=== PATIENT | female | born 1935 | race Caucasian/White ===

== ENCOUNTER 2016-07-23 11:06 | Emergency (ER) | payer MEDICARE, MEDICAID ==
[~2016-07-23] VITALS: Wt 82.0 kg
[~2016-07-23 11:06] MED LIST: ACET500C5 PO; ALEN70TA30 PO; APIX5TAB PO; BACL10TA PO; CEPH-443 PO; DICL100G37 TOP; DOCU-144 PO; FURO40SO PO; HYDR-3498 PO; IBUP400T22 PO; LEVO75TA5 PO; LYR75 PO; MECL-77 PO; MOR2I IV; NAPH30DR3 BOTH EYES; NITR0.4T6 SL; OLME40TA14 PO; OMEP20CA16 PO; PRED10TA PO; TRAM-40 PO; TRAM50TA2 PO; [UNRECOGNIZED DRUG - CODE] PO
[2016-07-23] MEDS ORDERED: SOD CHLORIDE 0.9% 1,000 ML IV STA (11:47)
[2016-07-23] MEDS ORDERED: morphine 4 MG/ML VIAL IV STA (11:47)
[2016-07-23] MEDS ORDERED: DICLOFENAC SODIUM 37.5 MG/ML VIAL IV STA (11:47)
[2016-07-23] MEDS ORDERED: ONDANSETRON 4 MG INJ IV STA (11:47)
--- NOTE | 2016-07-23 11:57 | ERD ---
ER Documentation Chief Complaint Date/Time DATE: 07/23/16 TIME: 11:49 Chief Complaint LEFT LEG PAIN HX OF DVT HPI This is a 81-year-old Lao-speaking female has a remote history of a deep vein thrombosis in the left lower extremity that has been recannulized. The patient also has an well-healed ulcer on her left heel that had been treated on an outpatient wound clinic. She had been seen July 08, 2016 roughly 2 weeks ago for similar pain that she is presenting with today. She states she has a known history of sciatica and underwent an MRI of her lumbar spine June 26, 2016. The patient indicates that she developed left buttocks pain that began to radiate down the lateral aspect of her left leg. This pain has been persistent for the past 24 hours. She states this is similar nature to previous exacerbations of sciatica. She denies any numbness or tingling of her bilateral lower extremities. She denies any swelling of her bilateral calves nor does she have any muscular cramps of her lower extremities or pain localized to the left calf. She has had no fevers no shaking or chills. She states there is been no discoloration of her bilateral lower extremities. She denies any chest pain or pressure that radiates to the neck or back or jaw and she denies any abdominal pain. She denies any recent trauma to her lumbar spine. ROS All systems reviewed and are negative except as per history of present illness. Medications Home Meds Active Scripts Tramadol HCl (Tramadol HCl) 50 Mg Tablet, 50 MG PO Q4 Y for PAIN, #15 TAB Prov:COREY HERRING MD 06/12/16 Cephalexin* (Keflex*) 500 Mg Capsule, 500 MG PO QID for 10 Days, CAP Prov:KONG NUÑEZ PA-C 06/08/16 Ibuprofen* (Motrin*) 400 Mg Tab, 400 MG PO Q6H Y for PAIN AND OR ELEVATED TEMP, #30 TAB Prov:KONG NUÑEZ PA-C 06/08/16 Morphine Sulfate (Morphine Sulfate) 2 Mg/Ml Soln, 2 MG IV Q4H Y for SEVERE PAIN LEVEL 7-10 for 30 Days Prov:KIZZY BELTRÁN 04/21/16 Hydrocodone Bit-Acetaminophen (Hydrocodone Bit-APAP) 5-325MG Tablet, 1 TAB PO Q6H Y for MODERATE PAIN LEVEL 4-6, #30 TAB Prov:KIZZY BELTRÁN 04/21/16 Apixaban* (Eliquis*) 5 Mg Tablet, 10 MG PO BID for 5 Days, TAB Prov:KIZZY BELTRÁN 04/21/16 Diclofenac Sodium* (Voltaren* Gel) 1% -100 Gm Gel, 2 GM TOP QID, #1 TUB Prov:SHELBIE BHATTMARIBETH Erwin 04/04/16 Ibuprofen* (Motrin*) 400 Mg Tab, 400 MG PO Q6, #30 TAB Prov:NOVAFRANCIE C 04/04/16 Pregabalin* (Lyrica*) 75 Mg Capsule, 75 MG PO BID for 7 Days, CAP Prov:NOVAFRANCIE 04/04/16 Docusate Sodium* (Colace*) 100 Mg Capsule, 100 MG PO BID for 7 Days, #30 CAP Prov:TOBI SMALLWOOD-C 03/11/16 Acetaminophen* (Tylophen*) 500 Mg Capsule, 1 CAP PO Q6H Y for PAIN AND OR ELEVATED TEMP, #30 CAP Prov:TBOI SMALLWOOD-C 03/11/16 Tramadol HCl (Tramadol HCl) 50 Mg Tablet, 50 MG PO Q4 Y for PAIN, #20 TAB Prov:TOBI SMALLWOOD-C 03/11/16 Reported Medications Meclizine Hcl* (Meclizine Hcl*) 25 Mg Tablet, 25 MG PO Q8H Y for DIZZINESS, TAB 04/17/16 Baclofen* (Baclofen*) 10 Mg Tablet, 10 MG PO Q8 Y for MUSCLE SPASMS, TAB 04/17/16 Prednisone* (Prednisone*) 10 Mg Tab, 10 MG PO DAILY, TAB 04/17/16 Tramadol Hcl* (Ultram*) 50 Mg Tablet, 50 MG PO BID Y for PAIN LEVEL 6-10, TAB 04/17/16 Omeprazole* (Omeprazole*) 20 Mg Capsule.dr, 20 MG PO DAILY, #30 CAP 04/17/16 Carbamazepine* (Carbamazepine* XR) 100 Mg Cpmp.12hr, 100 MG PO Q12, #60 CAP 04/17/16 Alendronate Sodium* (Fosamax*) 70 Mg Tablet, 70 MG PO Q7D, #4 TAB 04/17/16 Olmesartan Medoxomil (Benicar) 40 Mg Tablet, 40 MG PO DAILY, #30 TAB 04/17/16 Furosemide* (Furosemide*) 40 Mg/5 Ml Solution, 40 MG PO DAILY, #150 ML 04/17/16 Nitroglycerin* (Nitroglycerin* SL) 0.4 Mg Tab.subl, 0.4 MG SL Q5MIN Y for CHEST PAIN, BOTTLE 04/17/16 Naphazoline Hcl* (Clear Eyes Redness Relief* 0.1%) 30 Ml Drops, 2 DROP BOTH EYES Q4H Y for EYE REDNESS, EA 04/17/16 Levothyroxine Sodium* (Levothyroxine Sodium*) 75 Mcg Tablet, 75 MCG PO BEFORE BREAKFAST, #30 TAB 04/17/16 Allergies Allergies: Coded Allergies: No Known Allergy (Unverified , 06/12/16) PMhx/Soc History of Surgery: Yes (TAHBSO,cholecystectomy, L knee arthroscopy) Anesthesia Reaction: No Hx Neurological Disorder: Yes (neuropathy) Hx Respiratory Disorders: No Hx Cardiac Disorders: Yes (htn) Hx Psychiatric Problems: No Hx Miscellaneous Medical Probl: Yes (DM) Hx Alcohol Use: No Hx Substance Use: No Hx Tobacco Use: No Smoking Status: Never smoker Physical Exam Vitals Vital Signs Date Time Temp Pulse Resp B/P Pulse Ox O2 Delivery O2 Flow Rate FiO2 07/23/16 11:09 98.0 85 18 142/59 99 Physical Exam Constitutional:Well-developed. Well-nourished. HEENT:Normocephalic. Atraumatic.Pupils were equal round reactive to light. Moist mucous membranes.No tonsillar exudates. Neck: No nuchal rigidity. No lymphadenopathy. No posterior cervical spine tenderness or step-offs. Respiratory: Not using accessory muscles of respiration.Lungs were clear to auscultation bilaterally. No rhonchi. No rales. No wheezing. Cardiovascular: Regular rate regular rhythm.No murmurs. No rubs were appreciated.S1, S2 normal. Distal pulses are palpable 2+ bilaterally. GI: Abdomen was soft. Nontender. Non Distended. No pulsatile abdominal masses or bruits. No rebound. No guarding. Bowel sounds were present and normal. Muscle skeletal: Full range of motion of both the upper and lower extremities bilaterally.Normal muscle tone.No assymetrical calf tenderness or swelling. No pain out of proportion on the left of the right calf. Homans sign negative bilaterally. Straight leg test positive on the left. No paralumbar tenderness. No tenderness with palpation or percussion over the thoracic or lumbar spinous processes. Skin: No petechia, no purpura. No lesions on the palms or the soles of the feet. No maculopapular rash. Nor warmth or coolness to the touch of the bilateral feet. No ulcer present on the plantar surface of the left of the right foot NEURO: Patient was alert, awake, orientated x3.No facial droop. Gait observed and normal with no ataxia.Speech had regular rate and rhythm. No focal neurological deficits. Procedures/MDM The patient presented to the emergency department with back pain. My differential diagnosis included but was not limited to spinal origins of the pain such as fracture, osteomyelitis, epidural abscess, neoplasm, spondylolishtesis, discogenic, cauda equina syndrome or musculoligamentous. Nonspinal causes such as AAA, upper UTI, renal colic, aortic dissection, abdominal neoplasm were also considered as an etiology into their pain. The patient had IV access that was established by nursing staff. For analgesic control the patient received intravenous morphine Zofran Flexeril and was also given an NSAID intravenously. I did feel the patient's symptoms were likely result of her sciatica. The patient has a remote history of a deep vein thrombosis of the left lower extremity however on physical exam findings today there is no evidence of a DVT and I did not feel is necessary to repeat the vascular ultrasound as this had been done roughly 1 month ago and showed proper recanted utilization of the left popliteal vein. The patient has no risk factors for ostium myelitis or discitis. I did not feel the patient's pain was out of proportion, and again there was no physical exam findings to suggest necrotizing fasciitis. The patient's pain is completely resolved and she did feel comfortable being discharged home. Ancillary laboratory work showed no evidence of renal failure or leukocytosis to suggest a possible infection. The patient was discharged home in fair condition. They were instructed to return to the emergency department at any time if there was any worsening of their condition. The patient stated they would follow up with their PCP in the next 24-48 hours to initiate a suitable medication regimen under the care of their PCP as well as to allow their PCP to monitor any drug reactions. The patient was discharged home with prescriptions after they gave informed consent to the new medication. They were also fully informed by myself on the adverse effects and adverse drug interactions in order to provide adequate safeguards to prevent possible adverse reactions to medications. Departure Diagnosis: Primary Impression: Sciatica Laterality: left Qualified Code: M54.32 - Sciatica of left side Condition: WILEY Salazar Jul 23, 2016 11:57
[2016-07-23] MEDS ORDERED: HYDR-906 PO (11:58)
[2016-07-23] MEDS ORDERED: CYCL-319 PO (11:58)
[2016-07-23] MEDS ORDERED: CYCLOBENZAPRINE 10 MG TAB PO ONE (12:00)
[2016-07-23 12:58] LABS: ALBUMIN 3.7 g/dl (3.3-4.9)
[2016-07-23 12:59] LABS: INR 1.05; POTASSIUM 4.3 mmol/L (3.5-5.1); PROTIME 13.7 Sec (12.2-14.2); PT RATIO 1.1
[2016-07-23 13:00] LABS: PARTIAL THROMBOPLASTIN TIME 27.9 Sec (25.0-35.0)
[2016-07-23] MEDS ORDERED: DIPHENHYDRAMINE 50 MG INJ IV ONE (13:00)
[2016-07-23 13:01] LABS: CREATININE 0.65 mg/dl (0.44-1.00)
[2016-07-23 13:02] LABS: ALBUMIN/GLOBULIN RATIO 1.27; CALCIUM 9.4 mg/dl (8.4-10.2); TOTAL PROTEIN 6.6 g/dl (6.1-8.1)
[2016-07-23 13:03] LABS: BASOPHILS % 0.2 % (0.0-2.0); EOSINOPHILS # 0.1 10^3/ul (0.0-0.5); EOSINOPHILS % 0.7 % (0.0-7.0); HEMOGLOBIN 11.7 g/dl (12.0-16.0); LYMPHOCYTES # 1.6 10^3/ul (0.8-2.9); LYMPHOCYTES % 12.1 % (15.0-51.0); MEAN CORPUSCULAR HEMOGLOBIN 31.7 pg (29.0-33.0); MEAN CORPUSCULAR HGB CONC 34.3 g/dl (32.0-37.0); MEAN CORPUSCULAR VOLUME 92.4 fl (82.0-101.0); MEAN PLATELET VOLUME 7.8 fl (7.4-10.4); MONOCYTE # 0.9 10^3/ul (0.3-0.9); MONOCYTES % 6.5 % (0.0-11.0); NEUTROPHIL # 10.7 10^3/ul (1.6-7.5); NEUTROPHILS % 80.5 % (39.0-77.0); PLATELET COUNT 255 10^3/UL (140-440); RED BLOOD COUNT 3.68 10^6/ul (4.20-5.40); UNCORRECTED WBC 13.4 10^3/ul (4.8-10.8); WHITE BLOOD COUNT 13.4 10^3/ul (4.8-10.8)
[2016-07-23 13:05] LABS: CONDITION 1
[2016-07-23 14:39] VITALS: BP 130/64; PULSE 72; RESP 14; TEMP 98.3
[2016-07-27] MEDS ORDERED: HYDR-906 PO (14:20)
== END 2016-07-23 14:41 | disposition home or self-care (01) ==
LOC: E/R 11:06
DX: M54.32 Sciatica, left side (principal); I10 Essential (primary) hypertension; E11.9 Type 2 diabetes mellitus without complications
CPT/HCPCS: 80053; 85025; 85610; 85730; J1200; J2270; J2405; J7030; 96361; 96374; 96375

== ENCOUNTER 2016-07-27 11:24 | Emergency (ER) | END 2016-07-27 14:55 | disposition home or self-care (01) | DX: M54.5 Low back pain (principal); I10 Essential (primary) hypertension; E11.9 Type 2 diabetes mellitus without complications; Z79.01 Long term (current) use of anticoagulants | CPT/HCPCS: 93971; J2270 ==

== ENCOUNTER 2016-08-02 04:17 | Inpatient (IN) | payer MEDICARE, OTHER ==
[~2016-08-02] VITALS: Ht 152.4 cm; Wt 82.5 kg
[~2016-08-02 04:17] MED LIST changes: +CYCL-319 PO; +HYDR-906 PO; -TRAM50TA2 PO
[2016-08-02 04:22] VITALS: Ht 152.4 cm; Wt 82.5 kg
[2016-08-02] MEDS ORDERED: morphine 2 MG INJ IV STA (04:27)
[2016-08-02] MEDS ORDERED: ONDANSETRON 4 MG INJ IV STA (04:27)
[2016-08-02] MEDS ORDERED: SOD CHLORIDE 0.9% 1,000 ML IV STA (04:27)
[2016-08-02 05:56] LABS: HEMATOCRIT 41.1 % (37.0-47.0); MEAN CORPUSCULAR HEMOGLOBIN 31.8 pg (29.0-33.0); MEAN CORPUSCULAR HGB CONC 34.1 g/dl (32.0-37.0); MEAN CORPUSCULAR VOLUME 93.5 fl (82.0-101.0); MEAN PLATELET VOLUME 8.1 fl (7.4-10.4); PLATELET COUNT 371 10^3/UL (140-440); RED BLOOD COUNT 4.39 10^6/ul (4.20-5.40); RED CELL DISTRIBUTION WIDTH 14.7 % (11.5-14.5); UNCORRECTED WBC 25.6 10^3/ul (4.8-10.8); WHITE BLOOD COUNT 25.6 10^3/ul (4.8-10.8)
[2016-08-02 05:57] LABS: CONDITION 1
[2016-08-02 05:58] LABS: LH ANALYZER COMMENTS 1
[2016-08-02 06:03] LABS: ALBUMIN 4.1 g/dl (3.3-4.9); POTASSIUM 4.1 mmol/L (3.5-5.1)
[2016-08-02 06:06] LABS: ALBUMIN/GLOBULIN RATIO 1.28; BILIRUBIN,INDIRECT 0.2 mg/dl (0-1.1); BILIRUBIN,TOTAL 0.2 mg/dl (0.2-1.3); CALCIUM 9.4 mg/dl (8.4-10.2); CREATININE 0.83 mg/dl (0.44-1.00); TOTAL PROTEIN 7.3 g/dl (6.1-8.1)
--- NOTE | 2016-08-02 06:13 | RADRPT ---
PROCEDURE: CT of the abdomen and pelvis without contrast CLINICAL INDICATION: Abdominal Pain. TECHNIQUE: Spiral CT images through the abdomen and pelvis without the use of contrast. The admin istered radiation dose is CTDI 19 and DLP 1109.08. One or more of the following dose reduction tech niques were used: automated exposure control, adjustment of the mA and/or kV according to patient si ze, or use of iterative reconstruction technique. COMPARISON: None FINDINGS: Lack of oral and intravenous contrast somewhat limits evaluation. Slight bibasilar atelectasis is seen. There is subsegmental atelectasis of the right middle lobe an d lingula. Calcified left lower lobe granuloma is seen. The stomach is somewhat distended with flu id. Noncontrast imaging of the liver, spleen, adrenals, kidneys, and pancreas is unremarkable. No hydronephrosis or renal calculi are seen. No stones are seen in the kidneys, ureters, or bladder. Atherosclerotic change of the aorta is seen. There is a small hernia of the supraumbilical midline anterior abdominal wall containing fat. No adjacent fat stranding. Probable normal appendix. There is colonic diverticulosis without evidence of diverticulitis. There is no evidence for small bowel obstruction, free air, or abscess. The uterus and possibly also the ovaries appear to be surgicall y absent. There is degenerative change of the spine. IMPRESSION: Diverticulosis without evidence of diverticulitis. Stomach slightly distended with fluid. No defin ite acute abnormality. Fat-containing anterior abdominal wall hernia above the level of the umbilic us.. RPTAT: HLBE Physician Dania Date Time Electronically viewed and signed by Lani Lozada Physician on 08/02/2016 06:13 AYDEE/
[2016-08-02 07:39] LABS: LYMPHOCYTES # 1.3 10^3/ul (0.8-2.9); MONOCYTE # 0.8 10^3/ul (0.3-0.9); NEUTROPHIL # 20.2 10^3/ul (1.6-7.5); PLATELETS CLUMPS OCCASIONAL
[2016-08-02] MEDS ORDERED: CEFEPIME 2GM/50 ML (PMX) 50 ML IVPB STA (07:55)
[2016-08-02] MEDS ORDERED: LEVOFLOXACIN 750MG/D5W (PMX) 150 ML IVPB ONE (08:00)
--- NOTE | 2016-08-02 08:05 | ERA ---
ER Documentation Chief Complaint Date/Time DATE: 08/02/16 TIME: 08:01 Chief Complaint abd pain starts in back, radiates around to epigastric x 2 hrs, +n/v HPI This is an 81-year-old female who complains of mid epigastric abdominal pain that radiates around to the back onset a few hours ago. She says the pain is constant nothing makes the pain worse or better. She says she has had a few episodes of vomiting that are nonbilious and nonbloody. She says she has had a little diarrhea that is nonbloody. She denies fever. Denies knowing any known bad food exposure. She denies dysuria denies cough denies headache denies sore throat denies myalgias denies neck pain or photophobia ROS All systems reviewed and are negative except as per history of present illness. Medications Home Meds Active Scripts Hydrocodone/Acetaminophen ([place] 5-325 Tablet) 1 Each Tablet, 1 TAB PO Q6H Y for PAIN, #20 TAB Prov:ZOHRA LINDSEY PA-C 07/27/16 Hydrocodone/Acetaminophen ([place] 5-325 Tablet) 1 Each Tablet, 1 TAB PO Q6H Y for PAIN, #20 TAB Prov:WILEY JAIN 07/23/16 Cyclobenzaprine Hcl* (Cyclobenzaprine Hcl*) 10 Mg Tablet, 10 MG PO TID, #15 TAB Prov:WILEY JAIN 07/23/16 Cephalexin* (Keflex*) 500 Mg Capsule, 500 MG PO QID for 10 Days, CAP Prov:KONG NUÑEZ PA-C 06/08/16 Ibuprofen* (Motrin*) 400 Mg Tab, 400 MG PO Q6H Y for PAIN AND OR ELEVATED TEMP, #30 TAB Prov:KONG NUÑEZ PA-C 06/08/16 Morphine Sulfate (Morphine Sulfate) 2 Mg/Ml Soln, 2 MG IV Q4H Y for SEVERE PAIN LEVEL 7-10 for 30 Days Prov:KIZZY BELTRÁN 04/21/16 Hydrocodone Bit-Acetaminophen (Hydrocodone Bit-APAP) 5-325MG Tablet, 1 TAB PO Q6H Y for MODERATE PAIN LEVEL 4-6, #30 TAB Prov:KIZZY BELTRÁN 04/21/16 Apixaban* (Eliquis*) 5 Mg Tablet, 10 MG PO BID for 5 Days, TAB Prov:KIZZY BELTRÁN 04/21/16 Diclofenac Sodium* (Voltaren* Gel) 1% -100 Gm Gel, 2 GM TOP QID, #1 TUB Prov:FRANCIE BHATT 04/04/16 Pregabalin* (Lyrica*) 75 Mg Capsule, 75 MG PO BID for 7 Days, CAP Prov:FRANCIE BHATT 04/04/16 Docusate Sodium* (Colace*) 100 Mg Capsule, 100 MG PO BID for 7 Days, #30 CAP Prov:TOBI SMALLWOOD-C 03/11/16 Acetaminophen* (Tylophen*) 500 Mg Capsule, 1 CAP PO Q6H Y for PAIN AND OR ELEVATED TEMP, #30 CAP Prov:TOBI SMALLWOOD-C 03/11/16 Reported Medications Meclizine Hcl* (Meclizine Hcl*) 25 Mg Tablet, 25 MG PO Q8H Y for DIZZINESS, TAB 04/17/16 Baclofen* (Baclofen*) 10 Mg Tablet, 10 MG PO Q8 Y for MUSCLE SPASMS, TAB 04/17/16 Prednisone* (Prednisone*) 10 Mg Tab, 10 MG PO DAILY, TAB 04/17/16 Tramadol Hcl* (Ultram*) 50 Mg Tablet, 50 MG PO BID Y for PAIN LEVEL 6-10, TAB 04/17/16 Omeprazole* (Omeprazole*) 20 Mg Capsule.dr, 20 MG PO DAILY, #30 CAP 04/17/16 Carbamazepine* (Carbamazepine* XR) 100 Mg Cpmp.12hr, 100 MG PO Q12, #60 CAP 04/17/16 Alendronate Sodium* (Fosamax*) 70 Mg Tablet, 70 MG PO Q7D, #4 TAB 04/17/16 Olmesartan Medoxomil (Benicar) 40 Mg Tablet, 40 MG PO DAILY, #30 TAB 04/17/16 Furosemide* (Furosemide*) 40 Mg/5 Ml Solution, 40 MG PO DAILY, #150 ML 04/17/16 Nitroglycerin* (Nitroglycerin* SL) 0.4 Mg Tab.subl, 0.4 MG SL Q5MIN Y for CHEST PAIN, BOTTLE 04/17/16 Naphazoline Hcl* (Clear Eyes Redness Relief* 0.1%) 30 Ml Drops, 2 DROP BOTH EYES Q4H Y for EYE REDNESS, EA 04/17/16 Levothyroxine Sodium* (Levothyroxine Sodium*) 75 Mcg Tablet, 75 MCG PO BEFORE BREAKFAST, #30 TAB 04/17/16 Allergies Allergies: Coded Allergies: No Known Allergy (Unverified , 07/23/16) PMhx/Soc History of Surgery: Yes (TAHBSO,cholecystectomy, L knee arthroscopy) Anesthesia Reaction: No Hx Neurological Disorder: Yes (neuropathy) Hx Respiratory Disorders: No Hx Cardiac Disorders: Yes (htn) Hx Psychiatric Problems: No Hx Miscellaneous Medical Probl: Yes (DM) Hx Alcohol Use: No Hx Substance Use: No Hx Tobacco Use: No Smoking Status: Never smoker FmHx Family History: No coronary disease Physical Exam Vitals Vital Signs Date Time Temp Pulse Resp B/P Pulse Ox O2 Delivery O2 Flow Rate FiO2 08/02/16 04:22 97.8 105 24 127/74 97 Physical Exam Const: Well-developed, well-nourished Head: Atraumatic, normocephalic Eyes: Normal Conjunctiva, PERRLA, EOMI, normal sclera, no nystagmus ENT: Normal External Ears, Nose and Mouth, moist mucus membranes. Neck: Full range of motion. No meningismus, no lymphadenopathy. Resp: Clear to auscultation bilaterally, no wheezing, rhonchi, rales Cardio: Regular rate and rhythm, no murmurs, S1 S2 present Abd: Soft, moderate tenderness to the mid abdominal and epigastric region, non distended. Normal bowel sounds, no guarding or rebound, no pulsitile abdominal masses or bruits Skin: No petechiae or rashes, no ecchymosis , no maculopapular rash Back: No midline or flank tenderness Ext: No cyanosis, or edema, FROM x 4, normal inspection, neurovascularly intact x 4 Neur: Awake and alert, STR 5/5 x 4, sensation intact x 4, no focal findings, cerebellum intact Psych: Normal Mood and Affect Result Diagram: 08/02/1651808/02/16518 Results 24 hrs Laboratory Tests Test 08/02/16 05:19 Alanine Aminotransferase (ALT/SGPT) 37IU/L Albumin 4.1g/dl Albumin/Globulin Ratio 1.28 Alkaline Phosphatase 106IU/L Anion Gap 19 Aspartate Amino Transf (AST/SGOT) 23IU/L Band Neutrophils % 13.0% Basophils # 10^3/ul Basophils % % Blood Morphology Comment Blood Urea Nitrogen 34mg/dl Calcium Level 9.4mg/dl Carbon Dioxide Level 24mmol/L Chloride Level 102mmol/L Clumped Platelets OCCASIONAL Creatinine 0.83mg/dl Differential Comment MANUAL DIFF Direct Bilirubin 0.00mg/dl Eosinophils # 10^3/ul Eosinophils % % Globulin 3.20g/dl Glucose Level 148mg/dl Hematocrit 41.1% Hemoglobin 14.0g/dl Indirect Bilirubin 0.2mg/dl Lipase 44U/L Lymphocytes # 1.310^3/ul Lymphocytes % 5.0% Mean Corpuscular Hemoglobin 31.8pg Mean Corpuscular Hemoglobin Concent 34.1g/dl Mean Corpuscular Volume 93.5fl Mean Platelet Volume 8.1fl Monocytes # 0.810^3/ul Monocytes % 3.0% Neutrophils # 20.210^3/ul Neutrophils % 79.0% Nucleated Red Blood Cells # 10^3/ul Nucleated Red Blood Cells % /100WBC Platelet Count 31716^3/UL Potassium Level 4.1mmol/L Red Blood Count 4.3910^6/ul Red Cell Distribution Width 14.7% Sodium Level 141mmol/L Total Bilirubin 0.2mg/dl Total Protein 7.3g/dl White Blood Count 25.610^3/ul Current Medications Medications (Trade) Dose Ordered Sig/Yony Route PRN Reason Start Time Stop Time Status Last Admin Dose Admin Sodium Chloride (NS) 1,000 ml @ 1,000 mls/hr Q1H STAT IV 08/02/16 04:27 08/02/16 05:26 DC 08/02/16 05:16 Morphine Sulfate (morphine) 2 mg ONCE STAT IV 08/02/16 04:27 08/02/16 04:28 DC 08/02/16 05:17 Ondansetron HCl 4 mg 4 mg ONCE STAT IV 08/02/16 04:27 08/02/16 04:28 DC 08/02/16 05:17 Cefepime HCl 50 ml @ 100 mls/hr ONCE STAT IVPB 08/02/16 07:55 08/02/16 08:24 UNV Levofloxacin/ Dextrose (Levaquin 750 Mg/ D5W 150 ml (Pmx)) 150 ml @ 100 mls/hr ONCE ONCE IVPB 08/02/16 08:00 08/02/16 09:29 UNV Procedures/MDM PROCEDURE: CT of the abdomen and pelvis without contrast CLINICAL INDICATION: Abdominal Pain. TECHNIQUE: Spiral CT images through the abdomen and pelvis without the use of contrast. The administered radiation dose is CTDI 19 and DLP 1109.08. One or more of the following dose reduction techniques were used: automated exposure control, adjustment of the mA and/or kV according to patient size, or use of iterative reconstruction technique. COMPARISON: None FINDINGS: Lack of oral and intravenous contrast somewhat limits evaluation. Slight bibasilar atelectasis is seen. There is subsegmental atelectasis of the right middle lobe and lingula. Calcified left lower lobe granuloma is seen. The stomach is somewhat distended with fluid. Noncontrast imaging of the liver , spleen, adrenals, kidneys, and pancreas is unremarkable. No hydronephrosis or renal calculi are seen. No stones are seen in the kidneys, ureters, or bladder. Atherosclerotic change of the aorta is seen. There is a small hernia of the supraumbilical midline anterior abdominal wall containing fat. No adjacent fat stranding. Probable normal appendix. There is colonic diverticulosis without evidence of diverticulitis. There is no evidence for small bowel obstruction, free air, or abscess. The uterus and possibly also the ovaries appear to be surgically absent. There is degenerative change of the spine. IMPRESSION: Diverticulosis without evidence of diverticulitis. Stomach slightly distended with fluid. No definite acute abnormality. Fat-containing anterior abdominal wall hernia above the level of the umbilicus.. RPTAT: HLBE Physician Dania Date Time Electronically viewed and signed by Physician Dania on 08/02/2016 06 :13 LE/ CC: LYNN QUEEN Urinalysis is currently pending. No significant pathology is seen on the CT scan. She has very elevated white blood count 25.6 with a bandemia Patient is afebrile and does not meet sepsis criteria Blood cultures and stool cultures have been drawn as well as urine culture. She has been given IV fluids and antibiotic coverage. White blood count and bandemia could be stress demargination could be an infectious process therefore I will admit her to the hospital for fluids, antibiotics, observation. Urinalysis is pending and this could be the source. Vital signs are stable. Not tachycardic not hypotensive no fever Departure Diagnosis: Primary Impression: Bandemia without diagnosis of specific infection Additional Impressions: Abdominal pain Qualified Code: R10.13 - Epigastric pain Vomiting Qualified Code: R11.2 - Non-intractable vomiting with nausea, unspecified vomiting type Condition: Stable PARTH GRIGGS DO Aug 02, 2016 08:05
[2016-08-02] MEDS ORDERED: SOD CHLORIDE 0.9% 1,000 ML IV SCH (08:07)
[2016-08-02 08:30] VITALS: TEMP 97.8
[2016-08-02] MEDS ORDERED: NACL 0.9% 3 ML SYG IV SCH (08:30)
[2016-08-02] MEDS ORDERED: VANCOMYCIN IV PER PHARMACY XX SCH (08:30)
[2016-08-02] MEDS ORDERED: ONDANSETRON 4 MG INJ IV PRN ×2 (08:30)
[2016-08-02] MEDS ORDERED: NAPHAZOLINE 0.012% 15 ML OPH BOTH EYES PRN ×2 (08:30→15:30)
[2016-08-02] MEDS ORDERED: MECLIZINE 25 MG TAB PO PRN (08:30)
[2016-08-02] MEDS ORDERED: ACETAMINOPHEN 325 MG TAB PO PRN (08:30)
[2016-08-02] MEDS: FUROSEMIDE 40 MG/4 ML CUP PO SCH (10:00)
[2016-08-02] MEDS: LOSARTAN 50 MG TAB PO SCH (10:00)
[2016-08-02 10:06] LABS: MAGNESIUM 2.4 mg/dl (1.7-2.5)
[2016-08-02 10:20] VITALS: BP 98/46; PULSE 97; RESP 18
[2016-08-02] MEDS ORDERED: VANCOMYCIN 1.5 GM in SOD CHLORIDE 0.9% 250 ML IVPB SCH (10:30)
[2016-08-02 10:38] LABS: THYROID STIMULATING HORMONE 6.3 MIU/L (0.465-4.680)
[2016-08-02] MEDS: SOD CHLORIDE 0.9% 1,000 ML IV SCH ×2 (11:41→21:27)
[2016-08-02] MEDS: predniSONE 10 MG TAB PO SCH (11:42)
[2016-08-02] MEDS: PREGABALIN 75 MG CAP PO SCH ×2 (11:42→20:54)
[2016-08-02] MEDS: FAMOTIDINE 20 MG INJ IV SCH ×2 (11:42→20:54)
[2016-08-02] MEDS: metroNIDAZOLE 500 MG/NS (PMX) 100 ML IVPB SCH ×3 (11:43→20:54)
[2016-08-02] MEDS: morphine 2 MG INJ IV PRN (11:44)
[2016-08-02] MEDS: HEPARIN 5,000 UNIT/0.5 ML SYG SC SCH ×2 (11:44→20:56)
[2016-08-02] MEDS: ACETAMINOPHEN 325 MG TAB PO PRN (13:57)
[2016-08-02] MEDS: CEFEPIME 1GM/50 ML (PMX) 50 ML IVPB SCH ×2 (14:31→21:31)
[2016-08-02] MEDS ORDERED: DICLOFENAC SODIUM 1% GEL 100 GM TUBE TP PRN (18:30)
[2016-08-02] MEDS ORDERED: ACETAMINOPHEN 500 MG TAB PO PRN (18:30)
[2016-08-02] MEDS ORDERED: NITROGLYCERIN (SL) 0.4 MG TAB SL PRN (18:30)
[2016-08-02] MEDS: traMADol 50 MG TAB PO PRN (19:14)
--- NOTE | 2016-08-02 19:16 | HP ---
DATE OF ADMISSION: 08/02/2016 CNA CAREGIVER: Infectious Disease. CHIEF COMPLAINT: Abdominal pain, left-sided flank pain. HISTORY OF PRESENT ILLNESS: This is an 81-year-old female with past medical history of osteopenia, osteoarthritis, morbid obesity, lumbar radiculopathy, rheumatoid arthritis, anemia of chronic diseas e, hypertension, neuropathy, hypothyroidism, left peroneal DVT, chronic pain syndrome, constipation, morbid obesity who presented to [facility] Emergency Room on 07/30/2016 secondary to havin g epigastric pain, nausea without any vomiting, left flank pain. Upon arrival to emergency room, teagan farias was found to be afebrile with temperature 97.8, pulse 88, respirations 20, blood pressure 120/ 62, oxygen saturation 99%. The patient was found to have a WBC of 25.6. Urinalysis still pending. The patient was started on vancomycin and cefepime in the course of emergency room with IV fluid. At this time, the patient states that her abdominal discomfort has improved significantly, although patient still continues to complain of having left flank pain. PAST MEDICAL AND SURGICAL HISTORY: As above per HPI. MEDICATIONS: 1. Tylenol. 2. [place]. 3. Fosamax. 4. Eliquis. 5. Baclofen. 6. Carbamazepine. 7. Keflex. 8. Cyclobenzaprine. 9. Diclofenac. 10. Colace. 11. Lasix. 12. Motrin. 13. Levothyroxine. 14. Meclizine. 15. Nitroglycerin. 16. Benicar. 17. Omeprazole. 18. Prednisone. 19. Lyrica. 20. Ultram. ALLERGIES: NO KNOWN DRUG ALLERGIES. FAMILY HISTORY: Noncontributory secondary to advanced age. SOCIAL HISTORY: She lives at home with her niece. REVIEW OF SYSTEMS: Positive for nausea, no vomiting; abdominal pain; left flank pain. Positive dys uria. No hematuria, no urgency, no incontinence. No change in the color of the stool. No headache , dizziness, lightheadedness. No neck pain. No restricted range of motion in her upper or lower ex tremities or neck. PHYSICAL EXAMINATION: VITAL SIGNS: Temperature 98.1, pulse 97, respirations 18, blood pressure 98/46, oxygen saturation 9 8% in room air. GENERAL APPEARANCE: The patient is lying in bed comfortably without acute distress. She is awake, alert, oriented. She is able to answer my questions properly. Body habitus morbidly obese with BMI 35.5. EYES, EARS, NOSE, THROAT: Conjunctivae and lids are normal. Pupils are normal. Extraocular normal . Hearing grossly normal. Lips ____ are normal. Oral mucosa is moist. NECK: Supple. Trachea is midline. No lymphadenopathy. RESPIRATORY: Effort is normal. Clear to auscultation bilaterally. CARDIOVASCULAR: Normal S1, S2. Regular rhythm and rate. No murmur, no bruits, no edema. Peripher al pulses, radial pulses are palpable. Capillary refill is normal. CHEST: Normal expansion of thorax during inspiration. GASTROINTESTINAL: Abdomen soft, mildly tender in the mid epigastric and lower epigastric region and left-sided CVA tenderness. NEUROLOGIC: Cranial nerves II-XII are grossly intact. PSYCHIATRIC: Normal judgment and insight. She is awake, alert, oriented. LABORATORY WORK: WBC 25.6, hemoglobin 14, hematocrit 41.1, platelets 371. Sodium 141, potassium 4. 1, chloride 102, bicarbonate 24, BUN 34, creatinine 0.83, glucose 148. TSH 6.300. ASSESSMENT AND PLAN: 1. Pyelonephritis with possible cystitis. 2. Sepsis which is secondary to urinary tract infection, cystitis. 3. Morbid obesity. 4. Essential hypertension. 5. Hypothyroidism. 6. Dehydration. PLAN: The patient has been admitted to Med/Surg. She was treated with broad spectrum IV antibiotic s via vancomycin and cefepime. Will continue this regimen. Will follow urine culture and sensitivi ty and treat accordingly. Infectious disease doctor has been consulted. Regarding to her hypothyro idism, we will continue levothyroxine. Will follow up free T3 and free T4 and treat accordingly. I n regard to her history of ____ pain syndrome, continue pain medication. For chronic constipation, patient will be restarted on her home medication. The patient does have a history of DVT, which at this time the patient has been started on heparin. For osteoarthritis, the patient will continue cy clobenzaprine and pain medication. Will continue to monitor patient closely. Further recommendatio n, management and treatment as per clinical. Total amount of time spent for evaluation of patient and admission workup was 45 minutes. Dictated By: MARGARITO BAKER/NTS Conf#: [id number] [facility]#: [id number]
[2016-08-02 19:37] VITALS: BP 125/60; RESP 21
[2016-08-02] MEDS: DOCUSATE SODIUM 100 MG CAP PO SCH (20:54)
[2016-08-02] MEDS: carBAMAZepine (XR) 100 MG TABSR PO SCH (21:32)
[2016-08-02] MEDS: BACLOFEN 10 MG TAB PO PRN (21:32)
[2016-08-02 22:26] LABS: ADD UMIC NO; URINE BILIRUBIN (Dip) NEGATIVE (NEGATIVE); URINE BLOOD (Dip) NEGATIVE (NEGATIVE); URINE COLOR LT. YELLOW (YELLOW); URINE GLUCOSE (Dip) NEGATIVE (NEGATIVE); URINE KETONES (Dip) NEGATIVE (NEGATIVE); URINE LEUKOCYTE ESTERASE (Dip) NEGATIVE (NEGATIVE); URINE NITRITE (Dip) NEGATIVE (NEGATIVE); URINE TOTAL PROTEIN (Dip) NEGATIVE (NEGATIVE); URINE UROBILINOGEN (Dip) 0.2 E.U./dL (0.1-1.0)
--- NOTE | 2016-08-03 00:19 | CONS ---
DATE OF ADMISSION: 08/02/2016 DATE OF CONSULTATION: TYPE OF CONSULTATION: Infectious disease. REQUESTING PHYSICIAN: Dr. Rojelio Raymundo. HISTORY OF PRESENT ILLNESS: The patient is an 81-year-old female [place] who was admitt ed on 07/30/2016 with a chief complaint of epigastric pain with nausea without vomiting, left flank pain and on admission, she was noted to be afebrile. O2 saturation was 99%, pulse was 88, blood pre ssure was normal. Her white count was 25,600 with 79 polys and 13 bands, 5 lymphs and 3 monocytes. BUN was 34. Urinalysis had specific gravity of 1.010, clear yellow. All the other parameters were negative. A C. difficile test was negative. A CT scan of the abdomen revealed slight bibasilar at electasis. Subsegmental atelectasis in the right middle and lingular lobes and a fat containing umb ilical hernia. The patient stated 4 months ago she was put on an anticoagulant because she had deep vein thrombosis. She has chronic pain syndrome, complaining of pain in her lower lumbar area. She states she had imaging studies of this and it showed that she had a number of herniated disks, but she did not seek any further care as a results of that. She complains that she has pain radiating d own from her posterior left hip down her thigh laterally and into the left leg mid calf. She also s tates that her muscles are tender to palpation and cramp in the left upper lateral thigh and also th e upper left calf. The patient denies fever or night sweats. She denies coughing. PAST MEDICAL HISTORY: Includes morbid obesity, rheumatoid arthritis, osteoporosis, peripheral neuro janet, hypothyroidism, hypertension, and, of course, chronic pain syndrome. PAST SURGICAL HISTORY: She has had no operations. MEDICATIONS: Include: 1. Levothyroxine 75 mcg. 2. Tegretol 50 mg every 12 hours. 3. Docusate sodium 100 mg twice a day. 4. Baclofen 10 mg every 8 hours as needed for cramps. 5. Diclofenac 1% gel 3 times a day. 6. Nitroglycerin 1 tablet sublingually for chest pain. 7. Azelastine hydrochloride 2 drops for eyes every 8 hours as needed. 8. Furosemide 40 mg daily. 9. Losartan 100 mg daily. 10. Famotidine 20 mg daily. 11. Heparin international units every 12 hours subcutaneously. 12. Prednisone 10 mg daily. 13. Lyrica 75 mg daily. 14. Tramadol. 15. Morphine sulfate as needed for pain. 16. Metronidazole 100 mg every 8 hours IV. REVIEW OF SYSTEMS: Reveals dry eyes. No cough or sputum. No chest pain, abdominal discomfort or u mbilical hernia. Constipation; has to take a laxative fairly frequently. Denies hesitancy, frequen cy, dysuria or stone. Bones, muscles, joints: History of osteoporosis, osteoarthritis and herniate d lumbar disk and rheumatoid arthritis by history. PHYSICAL EXAMINATION GENERAL: Reveals a morbidly obese female lying supine in bed. She is alert, oriented and cooperative. She complains of pain on her left hip and left thigh in the left upper leg. She is no nambulatory at the present time. HEENT: The pupils are constricted and react to light. Mucous membranes of the mouth have thickened secretions. NECK: Supple. CHEST: Clear to auscultation. HEART: Regular. No gallop or murmur. ABDOMEN: Obese and soft. There is tenderness in the left upper quadrant. Bowel sounds are present . There is a palpable hernia defect around the umbilicus, which is small. Bowel sounds are present . LOWER EXTREMITIES: Reveal no edema or stasis changes. She is tender to palpation of the lateral th igh muscles on the left and also the upper calf on the lateral aspect of the left side. She has rosanna n on lifting her leg in extension and her hip in flexion. At approximately 20 degrees, she complain s of pain in these areas. INITIAL IMPRESSION: 1. Leukocytosis. 2. Morbid obesity. 3. Chronic pain syndrome. 4. Rheumatoid arthritis. 5. Hypothyroidism. 6. Hypertension. 7. Osteopenia. 8. Peripheral neuropathy. RECOMMENDATIONS: I would discontinue the present antibiotics and reculture the patient, particularl y blood cultures, since she has a temperature. We recommend getting an indium WBC scan and an MRI o f the lumbar spine and left hip to rule out infection or other cause of the leukocytosis and maybe t he pain also. Dictated By: Christiano BAEZA/DWIGHT Conf#: [id number] DID#: [id number]
[2016-08-03] MEDS: traMADol 50 MG TAB PO PRN ×2 (03:24→10:39)
[2016-08-03 05:43] LABS: BASOPHILS % 0.3 % (0.0-2.0); EOSINOPHILS # 0.1 10^3/ul (0.0-0.5); EOSINOPHILS % 0.5 % (0.0-7.0); HEMATOCRIT 33.6 % (37.0-47.0); HEMOGLOBIN 11.6 g/dl (12.0-16.0); LYMPHOCYTES # 2.6 10^3/ul (0.8-2.9); LYMPHOCYTES % 19.5 % (15.0-51.0); MEAN CORPUSCULAR HGB CONC 34.5 g/dl (32.0-37.0); MEAN CORPUSCULAR VOLUME 92.8 fl (82.0-101.0); MEAN PLATELET VOLUME 8.7 fl (7.4-10.4); MONOCYTE # 0.7 10^3/ul (0.3-0.9); MONOCYTES % 4.9 % (0.0-11.0); NEUTROPHIL # 10.2 10^3/ul (1.6-7.5); NEUTROPHILS % 74.8 % (39.0-77.0); PLATELET COUNT 269 10^3/UL (140-440); RED BLOOD COUNT 3.62 10^6/ul (4.20-5.40); RED CELL DISTRIBUTION WIDTH 14.4 % (11.5-14.5); UNCORRECTED WBC 13.6 10^3/ul (4.8-10.8); WHITE BLOOD COUNT 13.6 10^3/ul (4.8-10.8)
[2016-08-03 05:46] LABS: POTASSIUM 4.1 mmol/L (3.5-5.1)
[2016-08-03 05:48] LABS: CREATININE 0.77 mg/dl (0.44-1.00)
[2016-08-03 05:49] LABS: CALCIUM 7.9 mg/dl (8.4-10.2)
[2016-08-03] MEDS: metroNIDAZOLE 500 MG/NS (PMX) 100 ML IVPB SCH ×3 (06:06→22:33)
[2016-08-03] MEDS: PANTOPRAZOLE (EC) 40 MG TAB PO SCH (06:06)
[2016-08-03 06:26] LABS: CONDITION 1; LH ANALYZER COMMENTS 1; SUSPECT 1
[2016-08-03] MEDS ORDERED: LEVOTHYROXINE 75 MCG TAB PO SCH (07:00)
[2016-08-03] MEDS: FAMOTIDINE 20 MG INJ IV SCH (08:32)
[2016-08-03] MEDS: carBAMAZepine (XR) 100 MG TABSR PO SCH ×2 (08:32→20:54)
[2016-08-03] MEDS: predniSONE 10 MG TAB PO SCH (08:32)
[2016-08-03] MEDS: BACLOFEN 10 MG TAB PO PRN (08:32)
[2016-08-03] MEDS: DOCUSATE SODIUM 100 MG CAP PO SCH ×2 (08:32→20:54)
[2016-08-03] MEDS: LOSARTAN 50 MG TAB PO SCH (08:33)
[2016-08-03] MEDS: FUROSEMIDE 40 MG/4 ML CUP PO SCH (08:33)
[2016-08-03] MEDS: HEPARIN 5,000 UNIT/0.5 ML SYG SC SCH ×2 (08:35→20:57)
[2016-08-03] MEDS: PREGABALIN 75 MG CAP PO SCH ×2 (08:39→20:54)
[2016-08-03 08:50] VITALS: BP 102/53; RESP 18
[2016-08-03] MEDS ORDERED: NON-FORMULARY/PATIENT OWN MED (Omeprazole* 20 MG) PO SCH (09:00)
--- NOTE | 2016-08-03 10:07 | PN ---
Date/Time of Note Date/Time of Note DATE: 08/03/16 TIME: 10:03 Assessment/Plan VTE Prophylaxis VTE Prophylaxis Intervention: SCD's Lines/Catheters IV Catheter Type (from Nrs): Peripheral IV Urinary Cath still in place: No Assessment/Plan Chief Complaint/Hosp Course ASSESSMENT AND PLAN: 1. Urinary tract infection With evidence of leukocytosis, improving, continue IV antibiotics as per infectious disease recommendations Follow-up urine culture and sensitivity and CBC in a.m. 2. Abdominal pain likely secondary to diverticulosis Continue pain medication 3. Morbid obesity. Diet and exercise is recommended 4. Essential hypertension. Well-controlled on medical management 5. Hypothyroidism. Continue levothyroxine 6. Dehydration. Improving status post IV fluids 7. Osteoarthritis Continue pain medication DVT prophylaxis: Heparin We will continue monitor patient closely for recommendation management treatment as clinical course Problems: Subjective 24 Hr Interval Summary Free Text/Dictation Patient denies having any chest pain or shortness of breath Tolerating oral intake No nausea vomiting diarrhea Does complain of having minimal left flank pain Exam/Review of Systems Vital Signs Vitals Vital Signs Date Time Temp Pulse Resp B/P Pulse Ox O2 Delivery O2 Flow Rate FiO2 08/03/16 08:50 98.4 68 18 102/53 96 08/02/16 10:20 Room Air Intake and Output 08/02/16 08/02/16 08/03/16 15:00 23:00 07:00 Intake Total 730 ml Balance 730 ml Exam General: The patient is moderately overweight, Not in acute distress. HEENT: Atraumatic, normocephalic. The pupils are equal and round . Neck: Supple with full range of motion. Chest: Normal expansion of the thorax during inspiration Lungs: Clear to auscultation bilaterally Heart: Normal S1-S2, Regular rhythm and rate. Abdomen: Soft , nontender, nondistended , bowel sounds are present. Left CVA tenderness Extremities: Normal to inspection, no edema no cyanosis Neurologic: Normal mental status,The patient is awake, alert and oriented . Results Result Diagram: 08/03/16 0415 08/03/16 0415 Results 24 hrs Laboratory Tests Test 08/02/16 22:00 08/03/16 04:15 Urine Bilirubin NEGATIVE Urine Clarity CLEAR Urine Color LT. YELLOW Urine Glucose NEGATIVE Urine Hemoglobin NEGATIVE Urine Ketones NEGATIVE Urine Leukocyte Esterase NEGATIVE Urine Nitrite NEGATIVE Urine Specific [place] 1.010 Urine Total Protein NEGATIVE Urine Urobilinogen 0.2 E.U./dL Urine pH 7.0 Anion Gap 14 Basophils # 0.0 Basophils % 0.3 Blood Urea Nitrogen 25 H Calcium Level 7.9 L Carbon Dioxide Level 23 Chloride Level 105 Creatinine 0.77 Eosinophils # 0.1 Eosinophils % 0.5 Free Thyroxine 0.89 Free Triiodothyronine (T3) pg/mL 2.53 L Glucose Level 91 # Hematocrit 33.6 L Hemoglobin 11.6 L Lymphocytes # 2.6 Lymphocytes % 19.5 Mean Corpuscular Hemoglobin 32.0 Mean Corpuscular Hemoglobin Concent 34.5 Mean Corpuscular Volume 92.8 Mean Platelet Volume 8.7 Monocytes # 0.7 Monocytes % 4.9 Neutrophils # 10.2 H Neutrophils % 74.8 Nucleated Red Blood Cells # 0.0 Nucleated Red Blood Cells % 0.0 Platelet Count 269 # Potassium Level 4.1 Red Blood Count 3.62 L Red Cell Distribution Width 14.4 Sodium Level 138 White Blood Count 13.6 #H Medications Medications Current Medications Sodium Chloride (NS) 1,000 ml @ 75 mls/hr [id number] IV Last administered on 11:41; Admin Dose 75 MLS/HR; Start 08/02/16 at 08:07 Ondansetron HCl (Zofran Inj) 4 mg Q6H PRN IV NAUSEA AND/OR VOMITING; Start 08/02 at 08:30 Acetaminophen (Tylenol Tab) 650 mg Q6H PRN PO PAIN LEVEL 1-3 OR FEVER Last administered on 08/02/16 13:57; Admin Dose 650 MG; Start 08/02/16 at 08:30 Morphine Sulfate (morphine) 2 mg Q4H PRN IV SEVERE PAIN LEVEL 7-10 Last administered on 08/02/16 11:44; Admin Dose 2 MG; Start 08/02/16 at 08:30 Famotidine (Pepcid Iv) 20 mg Q12 IV Last administered on 08/03/16 08:32; Admin Dose 20 MG; Start 08/02/16 at 09:00 Heparin Sodium (Porcine) 5000 unit 5,000 unit Q12 SC Last administered on 08:35; Admin Dose 5,000 UNIT; Start 08/02/16 at 09:00 Cefepime HCl 50 ml @ 100 mls/hr Q12 IVPB Last administered on 08/02/16 21:31; Admin Dose 100 MLS/HR; Start 08/02/16 at 09:00 Metronidazole (Flagyl 500 Mg (Pmx)) 100 ml @ 100 mls/hr Q8 IVPB Last administered on 08/03/16 06:06; Admin Dose 100 MLS/HR; Start 08/02/16 at 08:30 Meclizine HCl (Antivert) 25 mg Q8H PRN PO DIZZINESS; Start 08/02/16 at 08:30 Prednisone (Prednisone) 10 mg DAILY PO Last administered on 08/03/16 08:32; Admin Dose 10 MG; Start 08/02/16 at 09:00 Pregabalin (Lyrica) 75 mg BID PO Last administered on 08/03/16 08:39; Admin Dose 75 MG; Start 08/02/16 at 09:00 Furosemide (Lasix) 40 mg DAILY PO Last administered on 08/03/16 08:33; Admin Dose 40 MG; Start 08/02/16 at 10:00 Losartan Potassium (Cozaar) 100 mg DAILY PO Last administered on 08/03/16 08:33 ; Admin Dose 100 MG; Start 08/02/16 at 10:00 Naphazoline HCl 2 drop 2 drop Q4H PRN BOTH EYES EYE REDNESS; Start 08/02/16 at 15:30 Vancomycin HCl/ Sodium Chloride (Vancocin/NS) 250 ml @ 83.333 mls/ hr Q24H IVPB ; Start 08/03/16 at 15:00 Tramadol HCl (Ultram) 50 mg Q6H PRN PO PAIN Last administered on 08/03/16 03:24 ; Admin Dose 50 MG; Start 08/02/16 at 18:00 Acetaminophen (Tylenol Tab) 500 mg Q6H PRN PO PAIN AND OR ELEVATED TEMP; Start 08/02/16 at 18:30 Baclofen (Lioresal) 10 mg Q8 PRN PO MUSCLE SPASMS Last administered on 08:32; Admin Dose 10 MG; Start 08/02/16 at 18:30 Carbamazepine (Tegretol Xr) 50 mg Q12 PO Last administered on 08/03/16 08:32; Admin Dose 50 MG; Start 08/02/16 at 21:00 Diclofenac Sodium (Voltaren 1% Gel) 2 gm TID PRN TP PAIN Last administered on 21:33; Admin Dose 2 GM; Start 08/02/16 at 18:30 Docusate Sodium (Colace) 100 mg BID PO Last administered on 08/03/16 08:32; Admin Dose 100 MG; Start 08/02/16 at 21:00 Nitroglycerin (Nitroglycerin (Sl Tab) 0.4 Mg) 1 tab [id number] PRN SL CHEST PAIN ; Start 08/02/16 at 18:30 Pantoprazole (Protonix Tab) 40 mg DAILY@06 PO Last administered on 08/03/16 06: 06; Admin Dose 40 MG; Start 08/03/16 at 06:00 MARGARITO BARRAGAN MD Aug 03, 2016 10:07
[2016-08-03] MEDS ORDERED: VANCOMYCIN 1 GM in NS 250 ML IVPB SCH (10:30)
[2016-08-03] MEDS: CEFEPIME 1GM/50 ML (PMX) 50 ML IVPB SCH ×2 (10:39→21:52)
[2016-08-03] MEDS: SOD CHLORIDE 0.9% 1,000 ML IV SCH (11:00)
[2016-08-03] MEDS ORDERED: VANCOMYCIN 1.5 GM in SOD CHLORIDE 0.9% 250 ML IVPB SCH ×2 (11:00→15:00)
[2016-08-03 19:35] VITALS: BP 112/56; RESP 20
--- NOTE | 2016-08-03 20:32 | RADRPT ---
PROCEDURE: MR Lumbar Spine without and with contrast contrast. CLINICAL INDICATION: Left sciatica pain TECHNIQUE: An MRI of the lumbar spine was performed utilizing the following sequences: Sagittal T1 -weighted, sagittal T2-weighted, sagittal STIR, axial T2-weighted dual echo. Following the intraveno us administration of 10 ml Magnevist, postcontrast axial and sagittal T1 fat suppressed images are o btained COMPARISON: CT abdomen and pelvis 08/02/2016. MRI lumbar spine 04/26/2016 FINDINGS: The study is limited by motion artifact. Vertebral bodies: Grade 1 anterolisthesis of L4 relative to L5 is again noted with type 2 endplate s ignal changes at this level and associated mild enhancement of the inferior L4 and superior L5 end p lates. There is no evidence of fracture. Mild anterior spondylosis at L3-4 is stable. Conus medularis region: Normal in attenuation and determination estimated at the L1 level. No pathol ogic intraspinal enhancement is evident T12-L1: There is signal loss without loss of disk stature, bulge or protrusion. There is no facet ar thropathy. The central canal is patent. There is no evidence for foraminal stenosis. L1-L2: There is signal loss without loss of disk stature bulge or protrusion. There is no facet arth ropathy. The ligamentum flava are normal in thickness. The central canal is patent. There is no ev idence for foraminal stenosis. L2-L3: No discogenic abnormality of significance is seen. There is no facet arthropathy. The ligamen patrick flava are normal in thickness. The central canal is patent. There is no evidence for foraminal stenosis. L3-L4: There is signal loss with mild loss of disk stature and an osteophyte/disk complex of approxi mately 4 mm asymmetric to the left. Mild bilateral facet arthropathy is present. The ligamentum flav a are normal in thickness. The central canal is patent. Mild to moderate left and mild right joe inal stenosis from osteophyte and disk complex are unchanged. L4-L5: Disk signal loss with end plate irregularity and osteophyte/disk complex of approximately 5 m m. A suspected superimposed left paracentral extrusion of approximately 9 mm extending in a cephala d manner behind the inferior L4 endplate is of concern on sagittal image 9. Severe bilateral facet a rthropathy is present. Ligamentum flavum hypertrophy of 5 mm is seen bilaterally. Combination of fi ndings cause moderate to severe central stenosis the AP dimension of the thecal sac approximately 6 mm similar to the prior examination. Osteophyte and disk complex cause severe bilateral foraminal s tenosis with the concerning disk fragment on the left causing severe left lateral recess narrowing. L5-S1: There is signal loss with severe eccentric loss of disk stature to the left and a 5 mm osteop hyte and disk complex extending into the foramina. Severe right greater than left facet arthropathy is present. The ligamentum flava are normal in thickness. The central canal is patent, AP dimension estimated at 12 mm. Osteophyte and disk complex causes moderate bilateral foraminal stenosis sligh tly worse on the left. Sacrum and sacroiliac joints: No abnormalities are identified, the joints are normal and symmetric. None spine related findings: No abnormalities are demonstrated. RPTAT:HJJR IMPRESSION: 1. Limited exam because of patient motion artifact. 2. Concern for interval development compared to the study of 04/26/2016 of a left paracentral disk extrusion at L4-5 estimated at 9 mm extending in a cephalad manner behind the inferior L4 endplate a nd contributing to severe left lateral recess stenosis. 3. Moderate to severe acquired central canal stenosis at L4-5 has not changed significantly since th e previous exam caused by severe facet arthropathy, grade 1 anterolisthesis, ligamentum flavum hyper trophy and osteophyte/disk complex. Significant bilateral foraminal stenosis at this level is again noted. 4. Significant degenerative disk narrowing osteophyte and disk complex causing left greater than ri ght foraminal stenosis at L5-S1 without associated central canal stenosis. 5. Stable degenerative disk disease at L3-4 asymmetric to the right causing right greater than left foraminal stenosis without central canal narrowing. 6. Other than enhancement of the degenerated endplates at L4-5, the level of the stable grade 1 ant erolisthesis, no pathologic enhancement is demonstrated. Physician Kya Date Time Electronically viewed and signed by Physician Kya on 08/03/2016 20:31 JR/
--- NOTE | 2016-08-03 22:58 | CONS ---
Date/Time of Note Date/Time of Note DATE: 08/03/16 TIME: 12:53 Assessment/Plan Assessment/Plan Chief Complaint/Hosp Course Subjective: No acute events, sitting up in a chair, nad, no fevers, c/o L leg and back pain PHYSICAL EXAMINATION GENERAL: Morbidly obese female who is alert, oriented and cooperative. She complains of pain on her left hip and left thigh in the left upper leg. HEENT: Atraumatic, normocephalic, СВЕТЛАНА NECK: Supple. CHEST: Clear to auscultation. HEART: Regular. No gallop or murmur. ABDOMEN: Obese and soft. There is tenderness in the left upper quadrant. Bowel sounds are present. LOWER EXTREMITIES: Reveal no edema INITIAL IMPRESSION: 1. SIRS with leukocytosis/n/v/epigastric pain==> improved. 2. Morbid obesity. 3. Chronic pain syndrome. 4. Rheumatoid arthritis. 5. Hypothyroidism. 6. Hypertension. 7. Osteopenia. 8. Peripheral neuropathy. RECOMMENDATIONS: Clinically stable, WBC decreasing, pending urine cx and nares swab, will change abx to Rocephin, continue Flagyl, f/u labs in am, order CXR and await for clinical improvement. MRI report noted [facility] staff Problems: Consultation Date/Type/Reason Admit Date/Time Aug 02, 2016 at 08:08 Initial Consult Date Type of Consultation: ID Referring Provider: MARGARITO BARRAGAN MD Exam/Review of Systems Vital Signs Vitals Vital Signs Date Time Temp Pulse Resp B/P Pulse Ox O2 Delivery O2 Flow Rate FiO2 08/03/16 19:35 98.3 72 20 112/56 94 08/02/16 10:20 Room Air Intake and Output 08/02/16 08/02/16 08/03/16 15:00 23:00 07:00 Intake Total 730 ml Balance 730 ml Results Result Diagram: 08/03/16 0415 08/03/16 0415 Results 24 hrs Laboratory Tests Test 08/03/16 04:15 Anion Gap 14 Basophils # 0.0 Basophils % 0.3 Blood Urea Nitrogen 25 H Calcium Level 7.9 L Carbon Dioxide Level 23 Chloride Level 105 Creatinine 0.77 Eosinophils # 0.1 Eosinophils % 0.5 Free Thyroxine 0.89 Free Triiodothyronine (T3) pg/mL 2.53 L Glucose Level 91 # Hematocrit 33.6 L Hemoglobin 11.6 L Lymphocytes # 2.6 Lymphocytes % 19.5 Mean Corpuscular Hemoglobin 32.0 Mean Corpuscular Hemoglobin Concent 34.5 Mean Corpuscular Volume 92.8 Mean Platelet Volume 8.7 Monocytes # 0.7 Monocytes % 4.9 Neutrophils # 10.2 H Neutrophils % 74.8 Nucleated Red Blood Cells # 0.0 Nucleated Red Blood Cells % 0.0 Platelet Count 269 # Potassium Level 4.1 Red Blood Count 3.62 L Red Cell Distribution Width 14.4 Sodium Level 138 White Blood Count 13.6 #H Medications Medications Current Medications Sodium Chloride (NS) 1,000 ml @ 75 mls/hr [id number] IV Last administered on 11:00; Admin Dose 75 MLS/HR; Start 08/02/16 at 08:07 Ondansetron HCl (Zofran Inj) 4 mg Q6H PRN IV NAUSEA AND/OR VOMITING; Start 08/02 at 08:30 Acetaminophen (Tylenol Tab) 650 mg Q6H PRN PO PAIN LEVEL 1-3 OR FEVER Last administered on 08/02/16 13:57; Admin Dose 650 MG; Start 08/02/16 at 08:30 Morphine Sulfate (morphine) 2 mg Q4H PRN IV SEVERE PAIN LEVEL 7-10 Last administered on 08/02/16 11:44; Admin Dose 2 MG; Start 08/02/16 at 08:30 Heparin Sodium (Porcine) 5000 unit 5,000 unit Q12 SC Last administered on 20:57; Admin Dose 5,000 UNIT; Start 08/02/16 at 09:00 Cefepime HCl 50 ml @ 100 mls/hr Q12 IVPB Last administered on 08/03/16 21:52; Admin Dose 100 MLS/HR; Start 08/02/16 at 09:00 Metronidazole (Flagyl 500 Mg (Pmx)) 100 ml @ 100 mls/hr Q8 IVPB Last administered on 08/03/16 22:33; Admin Dose 100 MLS/HR; Start 08/02/16 at 08:30 Meclizine HCl (Antivert) 25 mg Q8H PRN PO DIZZINESS; Start 08/02/16 at 08:30 Prednisone (Prednisone) 10 mg DAILY PO Last administered on 08/03/16 08:32; Admin Dose 10 MG; Start 08/02/16 at 09:00 Pregabalin (Lyrica) 75 mg BID PO Last administered on 08/03/16 20:54; Admin Dose 75 MG; Start 08/02/16 at 09:00 Furosemide (Lasix) 40 mg DAILY PO Last administered on 08/03/16 08:33; Admin Dose 40 MG; Start 08/02/16 at 10:00 Losartan Potassium (Cozaar) 100 mg DAILY PO Last administered on 08/03/16 08:33 ; Admin Dose 100 MG; Start 08/02/16 at 10:00 Naphazoline HCl 2 drop 2 drop Q4H PRN BOTH EYES EYE REDNESS; Start 08/02/16 at 15:30 Vancomycin HCl/ Sodium Chloride (Vancocin/NS) 250 ml @ 83.333 mls/ hr Q24H IVPB Last administered on 08/03/16 15:56; Admin Dose 83.333 MLS/HR; Start at 15:00 Tramadol HCl (Ultram) 50 mg Q6H PRN PO PAIN Last administered on 08/03/16 10:39 ; Admin Dose 50 MG; Start 08/02/16 at 18:00 Acetaminophen (Tylenol Tab) 500 mg Q6H PRN PO PAIN AND OR ELEVATED TEMP; Start 08/02/16 at 18:30 Baclofen (Lioresal) 10 mg Q8 PRN PO MUSCLE SPASMS Last administered on 08:32; Admin Dose 10 MG; Start 08/02/16 at 18:30 Carbamazepine (Tegretol Xr) 50 mg Q12 PO Last administered on 08/03/16 20:54; Admin Dose 50 MG; Start 08/02/16 at 21:00 Diclofenac Sodium (Voltaren 1% Gel) 2 gm TID PRN TP PAIN Last administered on 21:33; Admin Dose 2 GM; Start 08/02/16 at 18:30 Docusate Sodium (Colace) 100 mg BID PO Last administered on 08/03/16 20:54; Admin Dose 100 MG; Start 08/02/16 at 21:00 Nitroglycerin (Nitroglycerin (Sl Tab) 0.4 Mg) 1 tab [id number] PRN SL CHEST PAIN ; Start 08/02/16 at 18:30 Pantoprazole (Protonix Tab) 40 mg DAILY@06 PO Last administered on 08/03/16t 06: 06; Admin Dose 40 MG; Start 08/03/16 at 06:00 Famotidine (Pepcid) 20 mg DAILY PO ; Start 08/04/16 at 09:00 RAVI OBRIEN NP Aug 03, 2016 22:58
[2016-08-03] MEDS ORDERED: CEFTRIAXONE 1 GM/50 ML (PMX) 50 ML IVPB SCH (23:00)
[2016-08-04] MEDS ORDERED: CEFTRIAXONE 1 GM/50 ML (PMX) 50 ML IVPB SCH ×2 (01:00→01:30)
[2016-08-04] MEDS: SOD CHLORIDE 0.9% 1,000 ML IV SCH ×2 (01:12→13:27)
--- NOTE | 2016-08-04 01:23 | RADRPT ---
PROCEDURE: MR Hip. CLINICAL INDICATION: Left hip pain with rheumatoid arthritis TECHNIQUE: Noncontrast MRI of the left hip, with axial, sagittal and coronal reformatted images. T 1, T2 and proton density sequences are employed. Fat saturation technique is employed. COMPARISON: CT abdomen and pelvis with partially visualized left hip dated 08/02/2016. FINDINGS: The femoral head demonstrates normal contour and marrow signal and there is no evidence of avascular necrosis. The femoral neck and intertrochanteric regions are normal and there are no fractures or stress fractures. Fluid over the greater trochanter and represents trochanteric bursitis. Fluid collection measures 4 0 x 26 x 6 mm. Small amount of joint fluid is nonspecific. There is no significant joint effusion. Mild tendinosis of the insertional left gluteus medius The visualized neurovascular bundles are unre markable. There are no osteoarthritic changes. The labrum is unremarkable. Sigmoid colon diverticulosis. Surgical changes of hysterectomy. Otherwise, the partially visualize d pelvic organs are normal. IMPRESSION: 1. Left trochanter bursitis. 2. Mild tendinosis of the insertional left gluteus medius. 3. Otherwise, no significant degenerative changes in the left hip. 4. No acute fracture. Physician Rony Date Time Electronically viewed and signed by Physician Rony on 08/04/2016 01:23 RS/
[2016-08-04] MEDS: ACETAMINOPHEN 325 MG TAB PO PRN (03:24)
[2016-08-04] MEDS: traMADol 50 MG TAB PO PRN ×2 (04:45→12:26)
[2016-08-04 05:39] LABS: CREATININE 0.66 mg/dl (0.44-1.00)
[2016-08-04 05:40] LABS: CALCIUM 8.1 mg/dl (8.4-10.2); MAGNESIUM 2.3 mg/dl (1.7-2.5)
[2016-08-04 05:42] LABS: BASOPHILS % 0.3 % (0.0-2.0); EOSINOPHILS # 0.1 10^3/ul (0.0-0.5); EOSINOPHILS % 0.5 % (0.0-7.0); HEMATOCRIT 31.4 % (37.0-47.0); HEMOGLOBIN 10.7 g/dl (12.0-16.0); LYMPHOCYTES # 2.4 10^3/ul (0.8-2.9); LYMPHOCYTES % 24.9 % (15.0-51.0); MEAN CORPUSCULAR HEMOGLOBIN 31.8 pg (29.0-33.0); MEAN CORPUSCULAR HGB CONC 34.1 g/dl (32.0-37.0); MEAN CORPUSCULAR VOLUME 93.4 fl (82.0-101.0); MEAN PLATELET VOLUME 7.8 fl (7.4-10.4); MONOCYTE # 0.6 10^3/ul (0.3-0.9); MONOCYTES % 6.5 % (0.0-11.0); NEUTROPHIL # 6.5 10^3/ul (1.6-7.5); NEUTROPHILS % 67.8 % (39.0-77.0); PLATELET COUNT 258 10^3/UL (140-440); RED BLOOD COUNT 3.36 10^6/ul (4.20-5.40); RED CELL DISTRIBUTION WIDTH 14.6 % (11.5-14.5); UNCORRECTED WBC 9.5 10^3/ul (4.8-10.8); WHITE BLOOD COUNT 9.5 10^3/ul (4.8-10.8)
[2016-08-04] MEDS: PANTOPRAZOLE (EC) 40 MG TAB PO SCH (05:42)
[2016-08-04] MEDS: metroNIDAZOLE 500 MG/NS (PMX) 100 ML IVPB SCH ×2 (05:42→14:00)
[2016-08-04 05:45] LABS: CONDITION 1; LH ANALYZER COMMENTS 1
[2016-08-04 07:00] VITALS: BP 111/56; RESP 20
[2016-08-04] MEDS ORDERED: LEVOTHYROXINE 100 MCG TAB PO SCH (07:00)
[2016-08-04] MEDS: morphine 2 MG INJ IV PRN (07:50)
[2016-08-04] MEDS ORDERED: FAMOTIDINE 20 MG TAB PO SCH (09:00)
[2016-08-04] MEDS: FUROSEMIDE 40 MG/4 ML CUP PO SCH (09:39)
[2016-08-04] MEDS: carBAMAZepine (XR) 100 MG TABSR PO SCH (09:39)
[2016-08-04] MEDS: DOCUSATE SODIUM 100 MG CAP PO SCH (09:39)
[2016-08-04] MEDS: LOSARTAN 50 MG TAB PO SCH (09:40)
[2016-08-04] MEDS: PREGABALIN 75 MG CAP PO SCH (09:40)
[2016-08-04] MEDS: predniSONE 10 MG TAB PO SCH (09:40)
[2016-08-04] MEDS: HEPARIN 5,000 UNIT/0.5 ML SYG SC SCH (09:41)
--- NOTE | 2016-08-04 09:48 | PDOCDIS ---
Discharge Instructions CONDITION Patient Condition: Good HOME CARE INSTRUCTIONS: Diet Instructions: Low Fat /Cholesterol ACTIVITY: Activity Restrictions: Slowly Increase Activity Rest between Activity Avoid heavy lifting FOLLOW UP/APPOINTMENTS Appointments FOllow up with PCP in one week MARGARITO BARRAGAN MD Aug 04, 2016 09:48
[2016-08-04] MEDS ORDERED: CIPR-193 PO (09:52)
[2016-08-04] MEDS ORDERED: TRAM-40 PO (09:52)
[2016-08-04] MEDS ORDERED: SYN1 PO (09:52)
--- NOTE | 2016-08-04 11:49 | RADRPT ---
PROCEDURE: US DVT. CLINICAL INDICATION: Bilateral lower extremity pain and swelling. TECHNIQUE: Multiple longitudinal and transverse images of the bilateral lower extremity veins were obtained with lu scale and color Doppler imaging. 2D grayscale measurements with compression, co agustin Doppler flow, and augmentation was performed. The calf veins were interrogated as well. COMPARISON: 07/27/2016. FINDINGS: The bilateral common femoral, superficial femoral and popliteal veins are normally compressible thro ughout. Color flow demonstrates normal filling of the vessel. Normal waveforms are visualized and there is normal response to augmentation. The calf veins are visualized and are equally unremarkabl e. IMPRESSION: 1. No evidence of a deep vein thrombosis involving either lower extremity. RPTAT: QQ .Velasquez Rosales MD, Date Time Electronically viewed and signed by .Velasquez Rosales MD, MD on 08/04/2016 11:48 .N/
--- NOTE | 2016-08-04 13:17 | DS ---
DATE OF ADMISSION: 08/02/2016 DATE OF DISCHARGE: 08/04/2016 CONSULTANTS: Infectious disease DISCHARGE DIAGNOSES: 1. Urinary tract infection with evidence of leukocytosis, improving. The patient was discharged on ciprofloxacin. 2. Abdominal pain, likely secondary to diverticulosis and chronic pain syndrome. Continue pain med ication. 3. Morbid obesity. Diet and exercise are recommended. 4. Essential hypertension, well controlled on medical management. 5. Hypothyroidism. The patient's levothyroxine has been increased from 75 to 100 mcg p.o. daily. 6. Dehydration, improved status post IV fluid. 7. Osteoarthritis. Continue pain medication. DISCHARGE MEDICATIONS: 1. Ciprofloxacin 250 mg p.o. b.i.d. 2. Levothyroxine 100 mcg p.o. daily. 3. Tylenol. 4. Fosamax 100 mg. 5. Eliquis 10 mg. 6. Baclofen 10 mg 7. Carbamazepine 100 mg. 8. Cyclobenzaprine. 9. Diclofenac gel. 10. Colace. 11. Lasix 40 mg. 12. Nitroglycerin p.r.n. 13. Benicar 40 mg. 14. Omeprazole 20 15. Tramadol 50 mg. ALLERGIES: NO KNOWN DRUG ALLERGIES. LABORATORIES: Today WBC 9.5, hemoglobin 10.7, hematocrit 31.4, platelets 258. Sodium 139, potassiu m 4.0, chloride 108, bicarbonate 21, BUN 17, creatinine 0.66, glucose 92, calcium 8.1, magnesium 2.3 . TSH 6.30, free T3____ 0.89, free T3____ 2.53. VITAL SIGNS: Temperature 98.7, pulse 72, respiration 20, blood pressure 111/56, oxygen saturation 9 4% in room air. 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 Upon arrival to the emergency room, the patient was found to be afe brile with temperature 98.7, pulse 88. The patient was discharged home in stable condition, althoug h she returned back on 08/02/2016 secondary to having worsening abdominal pain. A WBC was found to be 25.6. CT of the abdomen and pelvis was obtained which demonstrated diverticulosis without any ev idence of diverticulitis. Thumb is slightly distended with fluid. No definite acute abnormalities, fat containing anterior abdominal wall hernia. The patient also had an MRI of her lumbar sacrum wh ich showed compared to a study on 04/26/2016 with left paracentral disk extrusion at L4-L5, 7 9 mm extending to the cephalic manner behind the inferior L4 endplate and contributing to severe lef t lateral recess stenosis, moderate to severe acquired central canal stenosis at L4-L5 has not bravo ed significantly, secondary degenerative disk narrowing osteophyte and this complex causing left gre ater than right foraminal stenosis at L5-S1 without associated central canal stenosis, stable degene rative disk disease at L3-L4, asymptomatic to the right causing right greater than left foraminal st enosis without central canal narrowing. The patient's hip MRI showed left bursitis, mild tend initis of the insertional left gluteus medius, otherwise no significant degenerative changes of the left hip, no acute fracture. The patient was seen and evaluated with physical therapy. Pain medica tion was initiated. The patient's WBC has improved significantly on Rocephin and Flagyl. At this t raymond, the patient is medically stable to be discharged home. The patient continues to complain of almonte ving hip pain and back pain, although this is chronic, and I will refer the patient to orthopedic simms eleoncio as outpatient for further evaluation and treatment. The patient will also need to start a t and exercise and weight loss. If the patient will be a candidate for any surgical intervention, s he needs to be cautious regarding heavy weight and have some weight loss prior to surgery. CONDITION AT TIME OF DISCHARGE: Stable. Dictated By: MARGARITO BARRAGAN MD PN/NTS Conf#: [id number] DID#: [id number]
--- NOTE | 2016-08-04 15:24 | CONS ---
Date/Time of Note Date/Time of Note DATE: 08/04/16 TIME: 15:22 Assessment/Plan Assessment/Plan Chief Complaint/Hosp Course Subjective: No acute events, no fevers, feels better PHYSICAL EXAMINATION GENERAL: Morbidly obese female who is alert, oriented and cooperative. She complains of pain on her left hip and left thigh in the left upper leg. HEENT: Atraumatic, normocephalic, СВЕТЛАНА NECK: Supple. CHEST: Clear to auscultation. HEART: Regular. No gallop or murmur. ABDOMEN: Obese and soft. There is tenderness in the left upper quadrant. Bowel sounds are present. LOWER EXTREMITIES: Reveal no edema INITIAL IMPRESSION: 1. SIRS with leukocytosis/n/v/epigastric pain==> resolved. 2. Morbid obesity. 3. Chronic pain syndrome. 4. Rheumatoid arthritis. 5. Hypothyroidism. 6. Hypertension. 7. Osteopenia. 8. Peripheral neuropathy. RECOMMENDATIONS: Clinically stable, WBC normalized, cx's negative, continue abx while in house, f/u studies, anticipate dc off abx if wbc scan negative [facility] staff Problems: Consultation Date/Type/Reason Admit Date/Time Aug 02, 2016 at 08:08 Type of Consultation: ID Referring Provider: MARGARITO BARRAGAN MD Exam/Review of Systems Vital Signs Vitals Vital Signs Date Time Temp Pulse Resp B/P Pulse Ox O2 Delivery O2 Flow Rate FiO2 08/04/16 07:00 98.7 20 111/56 70 08/03/16 19:35 72 08/02/16 10:20 Room Air Intake and Output 08/03/16 08/03/16 08/04/16 15:00 23:00 07:00 Intake Total 150 ml 1870 ml 1250 ml Output Total 1300 ml Balance 150 ml 570 ml 1250 ml Results Result Diagram: 08/04/16 0425 08/04/16 0425 Results 24 hrs Laboratory Tests Test 08/04/16 04:25 Anion Gap 14 Basophils # 0.0 Basophils % 0.3 Blood Morphology Comment Blood Urea Nitrogen 17 Calcium Level 8.1 L Carbon Dioxide Level 21 Chloride Level 108 Creatinine 0.66 Eosinophils # 0.1 Eosinophils % 0.5 Glucose Level 92 Hematocrit 31.4 L Hemoglobin 10.7 L Lymphocytes # 2.4 Lymphocytes % 24.9 Magnesium Level 2.3 Mean Corpuscular Hemoglobin 31.8 Mean Corpuscular Hemoglobin Concent 34.1 Mean Corpuscular Volume 93.4 Mean Platelet Volume 7.8 Monocytes # 0.6 Monocytes % 6.5 Neutrophils # 6.5 Neutrophils % 67.8 Nucleated Red Blood Cells # 0.0 Nucleated Red Blood Cells % 0.0 Platelet Count 258 Potassium Level 4.0 Red Blood Count 3.36 L Red Cell Distribution Width 14.6 H Sodium Level 139 White Blood Count 9.5 # Medications Medications Current Medications Sodium Chloride (NS) 1,000 ml @ 75 mls/hr [id number] IV Last administered on 01:12; Admin Dose 75 MLS/HR; Start 08/02/16 at 08:07 Ondansetron HCl (Zofran Inj) 4 mg Q6H PRN IV NAUSEA AND/OR VOMITING; Start 08/02 at 08:30 Acetaminophen (Tylenol Tab) 650 mg Q6H PRN PO PAIN LEVEL 1-3 OR FEVER Last administered on 08/04/16 03:24; Admin Dose 650 MG; Start 08/02/16 at 08:30 Morphine Sulfate (morphine) 2 mg Q4H PRN IV SEVERE PAIN LEVEL 7-10 Last administered on 08/04/16 07:50; Admin Dose 2 MG; Start 08/02/16 at 08:30 Heparin Sodium (Porcine) 5000 unit 5,000 unit Q12 SC Last administered on 09:41; Admin Dose 5,000 UNIT; Start 08/02/16 at 09:00 Metronidazole (Flagyl 500 Mg (Pmx)) 100 ml @ 100 mls/hr Q8 IVPB Last administered on 08/04/16 05:42; Admin Dose 100 MLS/HR; Start 08/02/16 at 08:30 Meclizine HCl (Antivert) 25 mg Q8H PRN PO DIZZINESS; Start 08/02/16 at 08:30 Prednisone (Prednisone) 10 mg DAILY PO Last administered on 08/04/16 09:40; Admin Dose 10 MG; Start 08/02/16 at 09:00 Pregabalin (Lyrica) 75 mg BID PO Last administered on 08/04/16 09:40; Admin Dose 75 MG; Start 08/02/16 at 09:00 Furosemide (Lasix) 40 mg DAILY PO Last administered on 08/04/16 09:39; Admin Dose 40 MG; Start 08/02/16 at 10:00 Losartan Potassium (Cozaar) 100 mg DAILY PO Last administered on 08/04/16 09:40 ; Admin Dose 100 MG; Start 08/02/16 at 10:00 Naphazoline HCl (Clear Eyes / Naphcon) 2 drop Q4H PRN BOTH EYES EYE REDNESS; Start 08/02/16 at 15:30 Tramadol HCl (Ultram) 50 mg Q6H PRN PO PAIN Last administered on 08/04/16 12:26 ; Admin Dose 50 MG; Start 08/02/16 at 18:00 Acetaminophen (Tylenol Tab) 500 mg Q6H PRN PO PAIN AND OR ELEVATED TEMP; Start 08/02/16 at 18:30 Baclofen (Lioresal) 10 mg Q8 PRN PO MUSCLE SPASMS Last administered on 08:32; Admin Dose 10 MG; Start 08/02/16 at 18:30 Carbamazepine (Tegretol Xr) 50 mg Q12 PO Last administered on 08/04/16 09:39; Admin Dose 50 MG; Start 08/02/16 at 21:00 Diclofenac Sodium (Voltaren 1% Gel) 2 gm TID PRN TP PAIN Last administered on 21:33; Admin Dose 2 GM; Start 08/02/16 at 18:30 Docusate Sodium (Colace) 100 mg BID PO Last administered on 08/04/16 09:39; Admin Dose 100 MG; Start 08/02/16 at 21:00 Nitroglycerin (Nitroglycerin (Sl Tab) 0.4 Mg) 1 tab [id number] PRN SL CHEST PAIN ; Start 08/02/16 at 18:30 Pantoprazole (Protonix Tab) 40 mg DAILY@06 PO Last administered on 08/04/16 05: 42; Admin Dose 40 MG; Start 08/03/16 at 06:00 Famotidine 20 mg 20 mg DAILY PO Last administered on 08/04/16 09:40; Admin Dose 20 MG; Start 08/04/16 at 09:00 Ceftriaxone Sodium (Rocephin) 50 ml @ 100 mls/hr Q24H IVPB Last administered on 08/04/16 01:10; Admin Dose 100 MLS/HR; Start 08/04/16 at 01:00 RAVI OBRIEN NP Aug 04, 2016 15:24
--- NOTE | 2016-08-04 16:39 | RADRPT ---
PROCEDURE: Indium-111 labeled white blood cell scan CLINICAL INDICATION: 81 -year-old patient with left static pain, fever and leukocytosis. TECHNIQUE: Following the intravenous injection of 0.43 mCi of Indium-111 labeled white blood cells , whole body anterior and posterior planar images were obtained 24 hours post injection. COMPARISON: No prior indium scans. MRI of the lumbar spine dated August 03, 2016. FINDINGS: Mildly increased tracer activity is seen in the lower lumbar spine, as prominent likely at the level of the L4 - L5 , to the right of the midline. No other definite abnormal areas of increased activity are seen in the study, including visualized p ortions of the head and neck, chest, abdomen, pelvis and visualized portions of the upper and lower extremities bilaterally. Physiologic uptake is noted in the liver and spleen. IMPRESSION: 1. Suggestion of mildly increased activity at approximately L4-L5 lumbar spine, predominantly to th e right of the midline, possibly related to inflammatory process. 2. No other definite abnormal focal areas of increased activity. RPTAT: HH .Shawna Chahal MD, Date Time Electronically viewed and signed by .Shawna Chahal MD, on 08/04/2016 16:39 .L/
== END 2016-08-04 17:05 | disposition home or self-care (01) | DRG 872 ==
LOC: E/R 04:17 → MS1 08:08
PROVIDERS: ADMIT Student in an Organized Health Care Education/Training Program; ATTEND Student in an Organized Health Care Education/Training Program
DX: A41.9 Sepsis, unspecified organism (principal); E86.0 Dehydration; M06.9 Rheumatoid arthritis, unspecified; N12 Tubulo-interstitial nephritis, not specified as acute or chronic; I10 Essential (primary) hypertension; Z68.35 Body mass index [BMI] 35.0-35.9, adult; E66.9 Obesity, unspecified; E03.9 Hypothyroidism, unspecified; G89.4 Chronic pain syndrome; K57.90 Diverticulosis of intestine, part unspecified, without perforation or abscess without bleeding
CPT/HCPCS: 36415; 72158; 73721; 74176; 78806; 80048; 80053; 81003; 83690; 83735; 84439; 84443; 84481; 85025; 87040; 87045; 87075; 87086; 93923; 96374; 96375; A9570; J0692; J0696; J1956; J2270; J2405; J3370; J7030; J7050; J7512

== ENCOUNTER 2016-08-17 11:29 | Emergency (ER) | payer MEDICARE, OTHER ==
[~2016-08-17] VITALS: Wt 81.0 kg
[~2016-08-17 11:29] MED LIST changes: -CEPH-443 PO; +CIPR-193 PO; -HYDR-3498 PO; -HYDR-906 PO; -IBUP400T22 PO; -LEVO75TA5 PO; -LYR75 PO; -MECL-77 PO; -MOR2I IV; -NAPH30DR3 BOTH EYES; -PRED10TA PO; +SYN1 PO
[2016-08-17] MEDS ORDERED: SOD CHLORIDE 0.9% 500 ML IV STA (11:43)
[2016-08-17] MEDS ORDERED: ONDANSETRON 4 MG INJ IV STA (11:43)
[2016-08-17] MEDS ORDERED: morphine 4 MG/ML VIAL IV STA ×2 (11:43→12:40)
[2016-08-17] MEDS ORDERED: DIAZEPAM 5 MG/ML SYG IV ONE (12:00)
[2016-08-17 12:25] LABS: BASOPHILS % 0.3 % (0.0-2.0); CONDITION 1; EOSINOPHILS # 0.1 10^3/ul (0.0-0.5); EOSINOPHILS % 0.7 % (0.0-7.0); HEMOGLOBIN 12.9 g/dl (12.0-16.0); LH ANALYZER COMMENTS 1; LYMPHOCYTES # 1.9 10^3/ul (0.8-2.9); MEAN CORPUSCULAR HEMOGLOBIN 31.5 pg (29.0-33.0); MEAN CORPUSCULAR HGB CONC 33.9 g/dl (32.0-37.0); MEAN CORPUSCULAR VOLUME 92.7 fl (82.0-101.0); MEAN PLATELET VOLUME 7.9 fl (7.4-10.4); MONOCYTE # 0.5 10^3/ul (0.3-0.9); MONOCYTES % 4.9 % (0.0-11.0); NEUTROPHIL # 7.5 10^3/ul (1.6-7.5); NEUTROPHILS % 75.1 % (39.0-77.0); PLATELET COUNT 417 10^3/UL (140-440); RED CELL DISTRIBUTION WIDTH 14.9 % (11.5-14.5); UNCORRECTED WBC 9.9 10^3/ul (4.8-10.8); WHITE BLOOD COUNT 9.9 10^3/ul (4.8-10.8)
[2016-08-17 12:28] LABS: ALBUMIN 4.1 g/dl (3.3-4.9)
[2016-08-17 12:29] LABS: POTASSIUM 4.7 mmol/L (3.5-5.1)
[2016-08-17 12:31] LABS: ALBUMIN/GLOBULIN RATIO 1.36; BILIRUBIN,INDIRECT 0.1 mg/dl (0-1.1); BILIRUBIN,TOTAL 0.1 mg/dl (0.2-1.3); CREATININE 1.15 mg/dl (0.44-1.00); TOTAL PROTEIN 7.1 g/dl (6.1-8.1)
[2016-08-17 12:32] LABS: CALCIUM 10.7 mg/dl (8.4-10.2)
--- NOTE | 2016-08-17 13:14 | RADRPT ---
PROCEDURE: US Lower extremity Venous. CLINICAL INDICATION: Left leg pain TECHNIQUE: Multiple sonographic images of the left lower extremity deep venous system was obtained utilizing grayscale, color-flow, compressive sonography and doppler imaging with augmentation. The images were reviewed on a PACS workstation. COMPARISON: None. FINDINGS: There is normal compressibility and flow within the left common femoral, superficial femoral, software engineer sales ior tibial, peroneal and popliteal veins. RPTAT: AA IMPRESSION: No sonographic evidence for deep venous thrombosis. .Rodger Pace MD, MD Date Time Electronically viewed and signed by .Rodger Pcae MD, on 08/17/2016 13:14 .S/
--- NOTE | 2016-08-17 13:31 | ERD ---
ER Documentation Chief Complaint Date/Time DATE: 08/17/16 TIME: 13:29 Chief Complaint left lower leg pain since 0400. no trauma hx of dvt on same leg HPI This is an 81-year-old female who presents to the emergency room with a chief complaint of back pain. The patient localized back pain to the lower back and states it radiates down her left leg. She describes her pain as a sharp pain worse with movement of her back. She states it started last night at 4 AM while she was sleeping. The patient denies any trauma to the back. ROS All systems reviewed and are negative except as per history of present illness. Medications Home Meds Active Scripts Ciprofloxacin Hcl* (Ciprofloxacin Hcl*) 250 Mg Tablet, 250 MG PO BID, #10 TAB Prov:MARGARITO BARRAGAN MD 08/04/16 Levothyroxine Sodium (Levothroid) 100 Mcg Tablet, 100 MCG PO BEFORE BREAKFAST, # 30 TAB Prov:MARGARITO BARRAGAN MD 08/04/16 Tramadol Hcl* (Ultram*) 50 Mg Tablet, 50 MG PO BID Y for PAIN LEVEL 6-10 for 1 Day, TAB Prov:MARGARITO BARRAGAN MD 08/04/16 Cyclobenzaprine Hcl* (Cyclobenzaprine Hcl*) 10 Mg Tablet, 10 MG PO TID, #15 TAB Prov:WILEY JAIN 07/23/16 Apixaban* (Eliquis*) 5 Mg Tablet, 10 MG PO BID for 5 Days, TAB Prov:KIZZY BELTRÁN 04/21/16 Diclofenac Sodium* (Voltaren* Gel) 1% -100 Gm Gel, 2 GM TOP QID, #1 TUB Prov:FRANCIE BHATT 04/04/16 Docusate Sodium* (Colace*) 100 Mg Capsule, 100 MG PO BID for 7 Days, #30 CAP Prov:TOBI SMALLWOOD PA-C 03/11/16 Acetaminophen* (Tylophen*) 500 Mg Capsule, 1 CAP PO Q6H Y for PAIN AND OR ELEVATED TEMP, #30 CAP Prov:TOBI SMALLWOOD PA-C 03/11/16 Reported Medications Baclofen* (Baclofen*) 10 Mg Tablet, 10 MG PO Q8 Y for MUSCLE SPASMS, TAB 04/17/16 Omeprazole* (Omeprazole*) 20 Mg Capsule.dr, 20 MG PO DAILY, #30 CAP 04/17/16 Carbamazepine* (Carbamazepine* XR) 100 Mg Cpmp.12hr, 100 MG PO Q12, #60 CAP 04/17/16 Alendronate Sodium* (Fosamax*) 70 Mg Tablet, 70 MG PO Q7D, #4 TAB 04/17/16 Olmesartan Medoxomil (Benicar) 40 Mg Tablet, 40 MG PO DAILY, #30 TAB 04/17/16 Furosemide* (Furosemide*) 40 Mg/5 Ml Solution, 40 MG PO DAILY, #150 ML 04/17/16 Nitroglycerin* (Nitroglycerin* SL) 0.4 Mg Tab.subl, 0.4 MG SL Q5MIN Y for CHEST PAIN, BOTTLE 04/17/16 Allergies Allergies: Coded Allergies: No Known Allergy (Unverified , 07/23/16) PMhx/Soc History of Surgery: No Anesthesia Reaction: No Hx Neurological Disorder: No Hx Respiratory Disorders: No Hx Cardiac Disorders: No Hx Psychiatric Problems: No Hx Miscellaneous Medical Probl: No Hx Alcohol Use: No Hx Substance Use: No Hx Tobacco Use: No Physical Exam Vitals Vital Signs Date Time Temp Pulse Resp B/P Pulse Ox O2 Delivery O2 Flow Rate FiO2 08/17/16 11:31 99.4 80 24 117/57 96 Physical Exam INITIAL VITAL SIGNS: Reviewed by me GENERAL: The patient is well developed and appropriate for usual state of health in no apparent distress HEENT: Pupils equal, round, and reactive to light. EOMI. There is no scleral icterus. NECK: C-spine is soft and supple, there is no meningismus. There is no cervical lymphadenopathy. LUNGS: Clear to auscultation bilaterally. There are no rales, wheezes or rhonchi. HEART: Regular rate and rhythm, no murmurs, clicks, rubs or gallops. ABDOMEN: Soft, non-tender, non-distended. There are bowel sounds in all four quadrants. No rebound or guarding. EXTREMITIES: There is no peripheral cyanosis or edema. No focal swelling or erythema. NEUROLOGICAL: Positive straight leg raise at 15 on the left the patient moves all four extremities with 5/5 strength. Cranial nerves II - XII are intact. Normal gait. Alert and oriented SKIN: There is no apparent rash or petechiae. HEME/LYMPHATIC: There is no evidence of excessive bruising or lymphedema. PSYCHIATRIC: The patient does not appear anxious or depressed. Result Diagram: 08/17/16 1200 08/17/16 1200 Results 24 hrs Laboratory Tests Test 08/17/16 12:00 Alanine Aminotransferase (ALT/SGPT) 29IU/L Albumin 4.1g/dl Albumin/Globulin Ratio 1.36 Alkaline Phosphatase 92IU/L Anion Gap 19 Aspartate Amino Transf (AST/SGOT) 27IU/L Basophils # 0.010^3/ul Basophils % 0.3% Blood Morphology Comment Blood Urea Nitrogen 39mg/dl Calcium Level 10.7mg/dl Carbon Dioxide Level 24mmol/L Chloride Level 103mmol/L Creatinine 1.15mg/dl Direct Bilirubin 0.00mg/dl Eosinophils # 0.110^3/ul Eosinophils % 0.7% Globulin 3.00g/dl Glucose Level 130mg/dl Hematocrit 38.0% Hemoglobin 12.9g/dl Indirect Bilirubin 0.1mg/dl Lymphocytes # 1.910^3/ul Lymphocytes % 19.0% Mean Corpuscular Hemoglobin 31.5pg Mean Corpuscular Hemoglobin Concent 33.9g/dl Mean Corpuscular Volume 92.7fl Mean Platelet Volume 7.9fl Monocytes # 0.510^3/ul Monocytes % 4.9% Neutrophils # 7.510^3/ul Neutrophils % 75.1% Nucleated Red Blood Cells # 0.010^3/ul Nucleated Red Blood Cells % 0.0/100WBC Platelet Count 73414^3/UL Potassium Level 4.7mmol/L Red Blood Count 4.1010^6/ul Red Cell Distribution Width 14.9% Sodium Level 141mmol/L Total Bilirubin 0.1mg/dl Total Protein 7.1g/dl White Blood Count 9.910^3/ul Current Medications Medications (Trade) Dose Ordered Sig/Yony Route PRN Reason Start Time Stop Time Status Last Admin Dose Admin Sodium Chloride (NS) 500 ml @ 500 mls/hr Q1H STAT IV 08/17/16 11:43 08/17/16 12:42 DC Morphine Sulfate (morphine) 2 mg ONCE STAT IV 08/17/16 11:43 08/17/16 11:45 DC 08/17/16 12:50 Ondansetron HCl (Zofran Inj) 4 mg ONCE STAT IV 08/17/16 11:43 08/17/16 11:45 DC 08/17/16 12:49 Diazepam (Valium) 2.5 mg ONCE ONCE IV 08/17/16 12:00 08/17/16 12:01 DC 08/17/16 12:50 Morphine Sulfate (morphine) 4 mg ONCE STAT IV 08/17/16 12:40 08/17/16 12:44 DC Procedures/MDM Ultrasound left lower extremity: No DVT This 81-year-old female presents to the emergency room for evaluation of back pain. The patient states that her back pain started at 4 AM. Her back pain is atraumatic however she did have a positive straight leg raise to 15 on the left on my examination. This patient does have a history of previous DVT on right leg. Ultrasound does not show any signs of acute DVT. She was given morphine and Valium here in the emergency room for pain. She does state that she has been taking tramadol at home without relief. I advised her to discard her tramadol and I will give her a prescription for Valium, [place] at home. The patient verbalized understanding and advised to follow with her primary care for outpatient MRI Departure Diagnosis: Primary Impression: Sciatica of left side Additional Impression: Renal insufficiency Condition: Stable REUBEN HANKINS DO Aug 17, 2016 13:31
[2016-08-17] MEDS ORDERED: DIAZ-90 PO (13:33)
[2016-08-17] MEDS ORDERED: HYDR-906 PO (13:33)
== END 2016-08-17 14:50 | disposition home or self-care (01) ==
LOC: E/R 11:29
DX: M54.32 Sciatica, left side (principal); N28.9 Disorder of kidney and ureter, unspecified; E03.9 Hypothyroidism, unspecified; R40.2142 Coma scale, eyes open, spontaneous, at arrival to emergency department; R40.2252 Coma scale, best verbal response, oriented, at arrival to emergency department; R40.2362 Coma scale, best motor response, obeys commands, at arrival to emergency department
CPT/HCPCS: 80053; 85025; 93971; 96374; 96375; 99285; J2270; J2405; J3360; J7040

== ENCOUNTER 2016-08-23 08:00 | Emergency (ER) | payer MEDICARE, OTHER ==
[~2016-08-23] VITALS: Wt 81.5 kg
[~2016-08-23 08:00] MED LIST changes: +DIAZ-90 PO; +HYDR-906 PO
[2016-08-23] MEDS ORDERED: KETOROLAC 15 MG INJ IM STA (08:31)
[2016-08-23] MEDS ORDERED: DIAZEPAM 5 MG TAB PO ONE (09:00)
--- NOTE | 2016-08-23 09:21 | ERD ---
ER Documentation Chief Complaint Date/Time DATE: 08/23/16 TIME: 09:06 Chief Complaint non traumatic chronic left leg pain radiating from left buttock for 2 days HPI Pleasant Setswana-speaking 81-year-old female reporting chronic low back pain with sciatica radiating down left leg. Patient was seen here in the emergency department on August 17, 2016 for this complaint, treated medically and discharged home. Patient reports treatment and effective. She has been in pain 2 days. Pain is moderate to severe on pain scale. Patient reports that she is seen at a clinic, does not have a primary care physician, know she has sciatica but is unaware of any lumbar spine disease. She is able to ambulate with assistance. She denies any loss of bowel or bladder, ROS All systems reviewed and are negative except as per history of present illness. Medications Home Meds Active Scripts Diazepam* (Valium*) 5 Mg Tablet, 5 MG PO Q8, #10 TAB Prov:PAPITO,THONY 08/23/16 Tramadol HCl (Tramadol HCl) 50 Mg Tablet, 50 MG PO Q4 Y for PAIN, #20 TAB Prov:PAPITO,THONY 08/23/16 Diazepam* (Valium*) 5 Mg Tablet, 5 MG PO QHS Y for ANXIETY, #7 TAB Prov:REUBEN HANKINS DO 08/17/16 Hydrocodone/Acetaminophen (Phoenix 5-325 Tablet) 1 Each Tablet, 1 TAB PO Q6H Y for PAIN, #10 TAB Prov:REUBEN HANKINS DO 08/17/16 Ciprofloxacin Hcl* (Ciprofloxacin Hcl*) 250 Mg Tablet, 250 MG PO BID, #10 TAB Prov:MARGARITO BARRAGAN MD 08/04/16 Levothyroxine Sodium (Levothroid) 100 Mcg Tablet, 100 MCG PO BEFORE BREAKFAST, # 30 TAB Prov:MARGARITO BARRAGAN MD 08/04/16 Tramadol Hcl* (Ultram*) 50 Mg Tablet, 50 MG PO BID Y for PAIN LEVEL 6-10 for 1 Day, TAB Prov:MARGARITO BARRAGAN MD 08/04/16 Cyclobenzaprine Hcl* (Cyclobenzaprine Hcl*) 10 Mg Tablet, 10 MG PO TID, #15 TAB Prov:WILEY JAIN 07/23/16 Apixaban* (Eliquis*) 5 Mg Tablet, 10 MG PO BID for 5 Days, TAB Prov:KIZZY BELTRÁN 04/21/16 Diclofenac Sodium* (Voltaren* Gel) 1% -100 Gm Gel, 2 GM TOP QID, #1 TUB Prov:NOVAFRANCIE Yaima 04/04/16 Docusate Sodium* (Colace*) 100 Mg Capsule, 100 MG PO BID for 7 Days, #30 CAP Prov:TOBI SMALLWOOD PA-C 03/11/16 Acetaminophen* (Tylophen*) 500 Mg Capsule, 1 CAP PO Q6H Y for PAIN AND OR ELEVATED TEMP, #30 CAP Prov:TOBI SMALLWOOD PA-C 03/11/16 Reported Medications Baclofen* (Baclofen*) 10 Mg Tablet, 10 MG PO Q8 Y for MUSCLE SPASMS, TAB 04/17/16 Omeprazole* (Omeprazole*) 20 Mg Capsule.dr, 20 MG PO DAILY, #30 CAP 04/17/16 Carbamazepine* (Carbamazepine* XR) 100 Mg Cpmp.12hr, 100 MG PO Q12, #60 CAP 04/17/16 Alendronate Sodium* (Fosamax*) 70 Mg Tablet, 70 MG PO Q7D, #4 TAB 04/17/16 Olmesartan Medoxomil (Benicar) 40 Mg Tablet, 40 MG PO DAILY, #30 TAB 04/17/16 Furosemide* (Furosemide*) 40 Mg/5 Ml Solution, 40 MG PO DAILY, #150 ML 04/17/16 Nitroglycerin* (Nitroglycerin* SL) 0.4 Mg Tab.subl, 0.4 MG SL Q5MIN Y for CHEST PAIN, BOTTLE 04/17/16 Allergies Allergies: Coded Allergies: No Known Allergy (Unverified , 08/23/16) PMhx/Soc History of Surgery: No Anesthesia Reaction: No Hx Neurological Disorder: No Hx Respiratory Disorders: No Hx Cardiac Disorders: No Hx Psychiatric Problems: No Hx Miscellaneous Medical Probl: No Hx Alcohol Use: No Hx Substance Use: No Hx Tobacco Use: No Smoking Status: Never smoker Physical Exam Vitals Vital Signs Date Time Temp Pulse Resp B/P Pulse Ox O2 Delivery O2 Flow Rate FiO2 08/23/16 08:02 98.2 90 20 128/74 99 Nursing notes reviewed, vital signs stable Physical Exam Const: No acute distress Head: Eyes: ENT: . Neck: Full range of motion.. Rotation, and lateral bending Resp: Clear to auscultation bilaterally Cardio: Regular rate and rhythm, no murmurs Abd: Soft, non tender, non distended. Normal bowel sounds Skin: Back: Left low back pain. No palpable spasm. Ext: No cyanosis, or edema Neur: Awake and alert Psych: Normal Mood and Affect Results 24 hrs Current Medications Medications (Trade) Dose Ordered Sig/Yony Route PRN Reason Start Time Stop Time Status Last Admin Dose Admin Ketorolac Tromethamine (Toradol) 15 mg ONCE STAT IM 08/23/16 08:31 08/23/16 08:33 DC 08/23/16 08:37 Diazepam (Valium) 5 mg ONCE ONCE PO 08/23/16 09:00 08/23/16 09:01 DC 08/23/16 08:37 Acetaminophen/ Hydrocodone Bitart (Phoenix (5/325)) 1 tab ONCE ONCE PO 08/23/16 10:30 08/23/16 10:31 08/23/16 10:07 Procedures/MDM Pleasant Setswana-speaking 81-year-old female presents to emergency department today for chronic left-sided lumbar pain with sciatica. Patient has been seen multiple times in the emergency room department for this complaint. Today patient was treated medically with Toradol and Valium reports decreased pain but is not totally resolved. Teaching provided in Setswana at this point via cow tester. Patient needs to follow-up with primary care physician or clinic for referral to physical therapy or orthopedic consult. Information will be provided today. Patient will be sent home with Ultram and Valium for temporary pain relief. I feel the patient is stable for discharge at this time, bacterial source for pain is not suspected, symptoms are consistent with her chronic back pain and sciatica physical exam and vital signs do not support bacterial infection.. I have discussed results, examination findings, the treatment plan with the patient and family present prior to discharge. Indications for emergent reevaluation, side effects of medication were also discussed. All questions were answered. Patient verbalizes understanding and agrees with plan of care. Late entry: Patient family leaves patient in the emergency room. Patient crying in pain. 1 5/3 2 5 Phoenix given p.o. Nursing was able to get a hold of family's grandson available for pickup. Patient reports improvement again in pain after Phoenix. Patient will be discharged with current plan above. Departure Diagnosis: Primary Impression: Chronic low back pain with left-sided sciatica Condition: Stable Patient Instructions: Back Pain (Acute Or Chronic) [facility] Additional Instructions: Thank you for for coming to [facility] for your care today. Please ask your nurse or provider if you have questions about your care today and do not leave until all your questions have been answered. Please use any medications given as directed and follow-up with your doctor (or the doctor you were referred to) in the next 2-3 days. If you do not have a primary care doctor you may follow up at the [facility] (listed below). You may also use motrin and tylenol as needed for fever and/or pain unless instructed otherwise by your provider or nurse. Indications for more urgent follow-up have been discussed, but you may return to the Emergency Department at ANY time for any worrisome or worsening symptoms. If you have abdominal pain, please know that no test or exam you received is perfect and you should follow up within 8 hours for continued pain. If you had any imaging studies today, such as an X-Ray or CT Scan, these studies will be reviewed later by a radiologist. You will be called if there are important findings that were not identified today, so make sure the contact information you provided at registration is correct. If you received any narcotic pain control medicine today, such as Vicodin, Morphine or Dilaudid, your coordination and judgment may be affected for a number of hours. Please do not drive or operate heavy machinery, and you may want someone to assist you at home. If you were given a prescription for narcotic medication, be aware that it is very addictive- use sparingly and only if necessary. THONY COBOS Aug 23, 2016 09:18
[2016-08-23] MEDS ORDERED: TRAM50TA2 PO (09:22)
[2016-08-23] MEDS ORDERED: DIAZ-90 PO (09:22)
[2016-08-23] MEDS ORDERED: HYDROCODONE/APAP (5/325) TAB PO ONE (10:30)
== END 2016-08-23 10:26 | disposition home or self-care (01) ==
LOC: FTE 08:00
DX: M54.42 Lumbago with sciatica, left side (principal); E03.9 Hypothyroidism, unspecified; Z79.01 Long term (current) use of anticoagulants
CPT/HCPCS: 96372; 99284; J1885

== ENCOUNTER 2016-09-13 08:40 | Emergency (ER) | END 2016-09-13 11:23 | disposition home or self-care (01) | DX: M54.5 Low back pain (principal); R40.2252 Coma scale, best verbal response, oriented, at arrival to emergency department; G89.29 Other chronic pain; F11.20 Opioid dependence, uncomplicated; I50.9 Heart failure, unspecified; I10 Essential (primary) hypertension; E66.9 Obesity, unspecified; E03.9 Hypothyroidism, unspecified; R40.2142 Coma scale, eyes open, spontaneous, at arrival to emergency department; R40.2362 Coma scale, best motor response, obeys commands, at arrival to emergency department; Z79.01 Long term (current) use of anticoagulants | CPT/HCPCS: 74176; 80053; 81003; 83690; 85025; J1885; J2405; J7040 ==

== ENCOUNTER 2016-09-21 09:08 | Emergency (ER) | payer OTHER ==
[~2016-09-21] VITALS: Ht 165.1 cm; Wt 81.8 kg
[~2016-09-21 09:08] MED LIST changes: -ACET500C5 PO; -CIPR-193 PO; -DIAZ-90 PO; -DICL100G37 TOP; +GABA100C14 PO; -HYDR-906 PO; +MELO-109 PO
[2016-09-21 09:10] VITALS: Ht 165.1 cm; Wt 81.8 kg
[2016-09-21 11:00] LABS: ADD SCAN DIFF NO
[2016-09-21 11:03] LABS: BASOPHILS % 0.4 % (0.0-2.0); EOSINOPHILS # 0.1 10^3/ul (0.0-0.5); EOSINOPHILS % 0.7 % (0.0-7.0); HEMATOCRIT 31.7 % (37.0-47.0); HEMOGLOBIN 10.6 g/dl (12.0-16.0); LYMPHOCYTES # 1.8 10^3/ul (0.8-2.9); LYMPHOCYTES % 18.3 % (15.0-51.0); MEAN CORPUSCULAR HEMOGLOBIN 31.9 pg (29.0-33.0); MEAN CORPUSCULAR HGB CONC 33.4 g/dl (32.0-37.0); MEAN CORPUSCULAR VOLUME 95.5 fl (82.0-101.0); MEAN PLATELET VOLUME 9.2 fl (7.4-10.4); MONOCYTE # 0.6 10^3/ul (0.3-0.9); MONOCYTES % 5.8 % (0.0-11.0); NEUTROPHIL # 7.3 10^3/ul (1.6-7.5); NEUTROPHILS % 73.6 % (39.0-77.0); PLATELET COUNT 353 10^3/UL (140-415); RED BLOOD COUNT 3.32 10^6/ul (4.20-5.40); RED CELL DISTRIBUTION WIDTH 14.9 % (11.5-14.5); WHITE BLOOD COUNT 9.9 10^3/ul (4.8-10.8)
[2016-09-21 11:11] LABS: POTASSIUM 4.1 mmol/L (3.5-5.1)
[2016-09-21 11:13] LABS: ALBUMIN/GLOBULIN RATIO 1.29; BILIRUBIN,INDIRECT 0.3 mg/dl (0-1.1); BILIRUBIN,TOTAL 0.3 mg/dl (0.2-1.3); CREATININE 0.65 mg/dl (0.44-1.00); TOTAL PROTEIN 7.1 g/dl (6.1-8.1)
[2016-09-21 11:14] LABS: CALCIUM 9.6 mg/dl (8.4-10.2)
--- NOTE | 2016-09-21 11:18 | RADRPT ---
PROCEDURE: Ultrasound of the bilateral lower extremity venous system. CLINICAL INDICATION: Bilateral leg pain and swelling, deep venous thrombosis TECHNIQUE: Garcia scale with and without compression, color doppler, spectral doppler of the venous system of the bilateral lower extremities was performed. Venous augmentation maneuvers were utilized . COMPARISON: 08/17/2016 FINDINGS: RIGHT: Common femoral vein: Patent. Femoral vein: Patent. Popliteal vein: Patent. Calf veins: Patent. No soft tissue abnormalities are identified. LEFT: Common femoral vein: Patent. Femoral vein: Patent. Popliteal vein: Patent. Calf veins: Patent. No soft tissue abnormalities are identified. IMPRESSION: No evidence of a deep vein thrombosis within the bilateral lower extremities. RPTAT: AADD .Alejo Mathis MD, MD Date Time Electronically viewed and signed by .Alejo Mathis MD, on 09/21/2016 11:17 .B/
[2016-09-21 11:30] LABS: TROPONIN-I 0.019 ng/ml (0.00-0.12)
[2016-09-21] MEDS ORDERED: ONDANSETRON 4 MG INJ IV STA (12:03)
[2016-09-21] MEDS ORDERED: morphine 4 MG/ML VIAL IV STA (12:03)
[2016-09-21] MEDS ORDERED: DICLOFENAC SODIUM 37.5 MG/ML VIAL IV STA (12:30)
--- NOTE | 2016-09-21 12:39 | ERD ---
ER Documentation Chief Complaint Date/Time DATE: 09/21/16 TIME: 12:31 Chief Complaint left leg painful and black & purple, denies injury HPI This is a Cypriot-speaking 81-year-old female with a known history of deep vein thrombosis in the left lower extremity that was treated 5 months prior to arrival. The patient is on Eliquis which she states she has been taking on a regular basis. She also has a known history of right-sided sciatica. For the past 4 days the patient indicates that she has been having worsening of her sciatic pain. Normally the pain is localized to the right buttocks however she states over the past 4 days the pain has began to radiate down the lateral aspect of the right leg. She denies any saddle anesthesia. She has had no fevers no shaking or chills. She denies any changes in her bladder or bowel frequency. She currently takes 10 mg of cyclobenzaprine and meloxicam but indicates this is not improved her pain. She also indicates that she noticed bruising 1 week ago of her left foot. This occurred after she fell asleep with her shoes on which were tightened with a Velcro strap. When she woke in the morning she removed her shoes and noticed bruising over the area of where the Velcro strap was. She however denies any pain of her left foot or lower extremity no pain of her left leg contrary to the triage note. She states despite the bruising of the left foot she is not experiencing pain and there was a misunderstanding at triage as the pain is in her right leg. She denies any recent remote trauma to her lower back. She has had no fevers no shaking or chills. She denies any shortness of breath at rest or exertion ROS All systems reviewed and are negative except as per history of present illness. Medications Home Meds Active Scripts Cyclobenzaprine Hcl* (Cyclobenzaprine Hcl*) 10 Mg Tablet, 10 MG PO BID for PAIN , #15 TAB Prov:MADELIN MANCINI MD 09/13/16 Levothyroxine Sodium (Levothroid) 100 Mcg Tablet, 100 MCG PO BEFORE BREAKFAST, # 30 TAB Prov:MARGARITO BARRAGAN MD 08/04/16 Tramadol Hcl* (Ultram*) 50 Mg Tablet, 50 MG PO BID Y for PAIN LEVEL 6-10 for 1 Day, TAB Prov:MARGARITO BARRAGAN MD 08/04/16 Apixaban* (Eliquis*) 5 Mg Tablet, 10 MG PO BID for 5 Days, TAB Prov:KIZZY BELTRÁN 04/21/16 Docusate Sodium* (Colace*) 100 Mg Capsule, 100 MG PO BID for 7 Days, #30 CAP Prov:TOBI SMALLWOOD PA-C 03/11/16 Reported Medications Gabapentin* (Gabapentin*) 100 Mg Capsule, 100 MG PO TID, #90 CAP 09/13/16 Meloxicam* (Meloxicam*) 7.5 Mg Tablet, 7.5 MG PO BID, #30 TAB 09/13/16 Baclofen* (Baclofen*) 10 Mg Tablet, 10 MG PO Q8 Y for MUSCLE SPASMS, TAB 04/17/16 Omeprazole* (Omeprazole*) 20 Mg Capsule.dr, 20 MG PO DAILY, #30 CAP 04/17/16 Carbamazepine* (Carbamazepine* XR) 100 Mg Cpmp.12hr, 100 MG PO Q12, #60 CAP 04/17/16 Alendronate Sodium* (Fosamax*) 70 Mg Tablet, 70 MG PO Q7D, #4 TAB 04/17/16 Olmesartan Medoxomil (Benicar) 40 Mg Tablet, 40 MG PO DAILY, #30 TAB 04/17/16 Furosemide* (Furosemide*) 40 Mg/5 Ml Solution, 40 MG PO DAILY, #150 ML 04/17/16 Nitroglycerin* (Nitroglycerin* SL) 0.4 Mg Tab.subl, 0.4 MG SL Q5MIN Y for CHEST PAIN, BOTTLE 04/17/16 Allergies Allergies: Coded Allergies: No Known Allergy (Unverified , 08/23/16) PMhx/Soc History of Surgery: Yes (appendix, c/s, gallbladder) Anesthesia Reaction: No Hx Neurological Disorder: No Hx Respiratory Disorders: No Hx Cardiac Disorders: Yes (DVT, HTN, Cardiac issue-on furosemide) Hx Psychiatric Problems: No Hx Miscellaneous Medical Probl: Yes (thyroid) Hx Alcohol Use: No Hx Substance Use: No Hx Tobacco Use: No Physical Exam Vitals Vital Signs Date Time Temp Pulse Resp B/P Pulse Ox O2 Delivery O2 Flow Rate FiO2 09/21/16 09:10 98.1 103 22 133/71 97 Physical Exam Constitutional:Well-developed. Well-nourished. HEENT:Normocephalic. Atraumatic.Pupils were equal round reactive to light. Moist mucous membranes.No tonsillar exudates. Respiratory: Not using accessory muscles of respiration.Lungs were clear to auscultation bilaterally. No rhonchi. No rales. No wheezing. Cardiovascular: Regular rate regular rhythm.No murmurs. No rubs were appreciated.S1, S2 normal. Distal pulses are palpable 2+ bilaterally. GI: Abdomen was soft. Nontender. Non Distended. No pulsatile abdominal masses or bruits. No rebound. No guarding. Bowel sounds were present and normal. Muscle skeletal: Full range of motion of both the upper and lower extremities bilaterally.Normal muscle tone.No assymetrical calf tenderness or swelling. Straight leg test positive on the right. Skin: No petechia, no purpura. No lesions on the palms or the soles of the feet. No maculopapular rash. Ecchymosis over the dorsal aspect of the left foot with soft tissue swelling and no pain out of proportion to physical exam. Ecchymosis over the third and fourth left toe. Pulse oximetry was 100% on all digits of the lower extremities. Patient was able to move all toes without any difficulty. No coolness to touch of the bilateral lower extremities NEURO: Patient was alert, awake, orientated x3.No facial droop. Gait observed and normal with no ataxia.Speech had regular rate and rhythm. No focal neurological deficits. Result Diagram: 09/21/16 1015 09/21/16 1015 Results 24 hrs Laboratory Tests Test 09/21/16 10:15 White Blood Count 9.910^3/ul Red Blood Count 3.3210^6/ul Hemoglobin 10.6g/dl Hematocrit 31.7% Mean Corpuscular Volume 95.5fl Mean Corpuscular Hemoglobin 31.9pg Mean Corpuscular Hemoglobin Concent 33.4g/dl Red Cell Distribution Width 14.9% Platelet Count 59261^3/UL Mean Platelet Volume 9.2fl Neutrophils % 73.6% Lymphocytes % 18.3% Monocytes % 5.8% Eosinophils % 0.7% Basophils % 0.4% Nucleated Red Blood Cells % 0.0/100WBC Neutrophils # 7.310^3/ul Lymphocytes # 1.810^3/ul Monocytes # 0.610^3/ul Eosinophils # 0.110^3/ul Basophils # 0.010^3/ul Nucleated Red Blood Cells # 0.010^3/ul Sodium Level 134mmol/L Potassium Level 4.1mmol/L Chloride Level 101mmol/L Carbon Dioxide Level 25mmol/L Anion Gap 12 Blood Urea Nitrogen 21mg/dl Creatinine 0.65mg/dl Glucose Level 125mg/dl Calcium Level 9.6mg/dl Total Bilirubin 0.3mg/dl Direct Bilirubin 0.00mg/dl Indirect Bilirubin 0.3mg/dl Aspartate Amino Transf (AST/SGOT) 23IU/L Alanine Aminotransferase (ALT/SGPT) 38IU/L Alkaline Phosphatase 95IU/L Troponin I 0.019ng/ml B-Type Natriuretic Peptide 59PG/ML Total Protein 7.1g/dl Albumin 4.0g/dl Globulin 3.10g/dl Albumin/Globulin Ratio 1.29 Amylase Level 36U/L Lipase 27U/L Current Medications Medications (Trade) Dose Ordered Sig/Yony Route PRN Reason Start Time Stop Time Status Last Admin Dose Admin Morphine Sulfate (morphine) 4 mg ONCE STAT IV 09/21/16 12:03 09/21/16 12:05 DC 09/21/16 12:10 Ondansetron HCl (Zofran Inj) 4 mg ONCE STAT IV 09/21/16 12:03 09/21/16 12:05 DC 09/21/16 12:10 Procedures/MDM The patient presented to the emergency department with back pain. My differential diagnosis included but was not limited to spinal origins of the pain such as fracture, osteomyelitis, epidural abscess, neoplasm, spondylolishtesis, discogenic, cauda equina syndrome or musculoligamentous. Nonspinal causes such as AAA, upper UTI, renal colic, aortic dissection, abdominal neoplasm were also considered as an etiology into their pain. I obtained venous duplex ultrasound of the bilateral lower extremities which were negative for DVT. The patient is on Eliquis. There is also ecchymosis over the left foot which was thought to be secondary to the patient leaving her she was on too tightly. I did however obtain radiographic imaging of the left foot and ankle which showed no acute fractures or dislocations. The patient had no physical exam findings of the left foot to suggest endocarditis or venous or arterial insufficiency. There is no physical exam findings at this time either to suggest necrotizing fasciitis from mild trauma the bilateral lower extremity. There is no electrolyte abnormalities. Kidney function was normal. I did feel the patient's pain in her right lower extremity was likely exacerbated by her sciatic pain with no evidence of cauda equina syndrome. The patient received intravenous morphine and anti-inflammatories with IV fluids. Her pain had significantly improved. She will be sent home with a prescription of [place] and already has muscle relaxants. The patient was discharged home in fair condition. They were instructed to return to the emergency department at any time if there was any worsening of their condition. The patient stated they would follow up with their PCP in the next 24-48 hours to initiate a suitable medication regimen under the care of their PCP as well as to allow their PCP to monitor any drug reactions. The patient was discharged home with prescriptions after they gave informed consent to the new medication. They were also fully informed by myself on the adverse effects and adverse drug interactions in order to provide adequate safeguards to prevent possible adverse reactions to medications. Departure Diagnosis: Primary Impression: Traumatic ecchymosis of left foot Encounter type: initial encounter Qualified Code: S90.32XA - Traumatic ecchymosis of left foot, initial encounter Additional Impression: Right sciatic nerve pain Condition: Fair WILEY JAIN Sep 21, 2016 12:39
[2016-09-21] MEDS ORDERED: HYDR-906 PO (12:40)
--- NOTE | 2016-09-21 13:43 | RADRPT ---
PROCEDURE: XR Left Foot. CLINICAL INDICATION: Left foot pain. TECHNIQUE: Three views. Frontal, lateral, and oblique. COMPARISON: None. FINDINGS: There is no fracture or dislocation. The soft tissues are normal. There are degenerative changes of the first metatarsal phalangeal joint with joint space narrowing, osteophytes, subarticular sclerosis, and mild deformity. There is a hallux valgus. There are hamme rtoe deformities of the second and third toes. There are calcaneal spurs. There is no lytic or blastic lesion. There is no radiopaque foreign body. IMPRESSION: 1. 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 2. Hallux valgus. 3. Hammertoe deformities of the second and third toes. 4. Calcaneal spurs. 5. No acute abnormality. RPTAT: QQ .Dennis Huynh MD, Date Time Electronically viewed and signed by .Dennis Huynh MD, on 09/21/2016 13:43 .R/
[2016-09-21] MEDS ORDERED: LORAZEPAM 2 MG INJ IV ONE (14:00)
[2016-09-21 14:34] VITALS: BP 121/96; PULSE 86; RESP 18; TEMP 97.9
[2016-09-21 15:28] LABS: INR 1.07; PROTIME 13.9 Sec (12.2-14.2); PT RATIO 1.1
== END 2016-09-21 14:34 | disposition home or self-care (01) ==
LOC: FTE 09:08
DX: S90.32XA Contusion of left foot, initial encounter (principal); M54.31 Sciatica, right side; I10 Essential (primary) hypertension; E03.9 Hypothyroidism, unspecified; X58.XXXA Exposure to other specified factors, initial encounter; Y92.9 Unspecified place or not applicable
CPT/HCPCS: 73630; 80053; 82150; 83690; 83880; 84484; 85025; 85610; 87040; 93005; 93970; 96374; 96375; 99284; J2060; J2270; J2405

== ENCOUNTER 2016-09-25 10:21 | Emergency (ER) | payer OTHER ==
[~2016-09-25] VITALS: Wt 81.0 kg
[~2016-09-25 10:21] MED LIST changes: +HYDR-906 PO
[2016-09-25] MEDS ORDERED: ONDANSETRON (ODT) 4 MG TAB ODT STA (11:10)
--- NOTE | 2016-09-25 11:13 | ERD ---
ER Documentation Chief Complaint Date/Time DATE: 09/25/16 TIME: 11:11 Chief Complaint RIGHT LEG PAIN AND SWELLING X 1 MONTHS HPI This is an 81-year-old female with a known history of sciatica and chronic lower back pain and is on Eliquis. the patient also has type 2 diabetes mellitus. The patient presents to the emergency department today stating she has been expressing worsening of her right lower back pain that radiates down the lateral aspect of her right leg and is exacerbated with ambulation. She denies any numbness or tingling of her right lower extremity. She has no changes in her bladder or bowel frequency. She has had no fevers or shaking or chills. She denies any saddle anesthesia. She denies any recent remote trauma. She denies any abdominal pain. She is no chest pain or pressure that radiates to the neck arm back or jaw. She has no polyuria or polydipsia. Upon reviewing the patient's previous medical records she been seen and evaluated in the emergency department 2 days prior to arrival for similar complaints. Venous duplex ultrasounds have been done of both lower extremities 2 days prior to arrival and were normal. Ancillary laboratory work showed no leukocytosis no electrolyte abnormalities the patient had also been seen according to the SOM notification for sciatic pain July 23, July 27, August 02, August 17, August 23 and September 13 at [facility]. ROS All systems reviewed and are negative except as per history of present illness. Medications Home Meds Active Scripts Tramadol HCl (Tramadol HCl) 50 Mg Tablet, 50 MG PO BID, #30 TAB Prov:WILEY JAIN 09/25/16 Cyclobenzaprine Hcl* (Cyclobenzaprine Hcl*) 10 Mg Tablet, 10 MG PO BID for PAIN , #15 TAB Prov:MADELIN MANCINI MD 09/13/16 Levothyroxine Sodium (Levothroid) 100 Mcg Tablet, 100 MCG PO BEFORE BREAKFAST, # 30 TAB Prov:MARGARITO BARRAGAN MD 08/04/16 Tramadol Hcl* (Ultram*) 50 Mg Tablet, 50 MG PO BID Y for PAIN LEVEL 6-10 for 1 Day, TAB Prov:MARGARITO BARRAGAN MD 08/04/16 Apixaban* (Eliquis*) 5 Mg Tablet, 10 MG PO BID for 5 Days, TAB Prov:KIZZY BELTRÁN 04/21/16 Docusate Sodium* (Colace*) 100 Mg Capsule, 100 MG PO BID for 7 Days, #30 CAP Prov:TOBI SMALLWOOD PA-C 03/11/16 Reported Medications Gabapentin* (Gabapentin*) 100 Mg Capsule, 100 MG PO TID, #90 CAP 09/13/16 Meloxicam* (Meloxicam*) 7.5 Mg Tablet, 7.5 MG PO BID, #30 TAB 09/13/16 Baclofen* (Baclofen*) 10 Mg Tablet, 10 MG PO Q8 Y for MUSCLE SPASMS, TAB 04/17/16 Omeprazole* (Omeprazole*) 20 Mg Capsule.dr, 20 MG PO DAILY, #30 CAP 04/17/16 Carbamazepine* (Carbamazepine* XR) 100 Mg Cpmp.12hr, 100 MG PO Q12, #60 CAP 04/17/16 Alendronate Sodium* (Fosamax*) 70 Mg Tablet, 70 MG PO Q7D, #4 TAB 04/17/16 Olmesartan Medoxomil (Benicar) 40 Mg Tablet, 40 MG PO DAILY, #30 TAB 04/17/16 Furosemide* (Furosemide*) 40 Mg/5 Ml Solution, 40 MG PO DAILY, #150 ML 04/17/16 Nitroglycerin* (Nitroglycerin* SL) 0.4 Mg Tab.subl, 0.4 MG SL Q5MIN Y for CHEST PAIN, BOTTLE 04/17/16 Discontinued Scripts Hydrocodone/Acetaminophen ([place] 5-325 Tablet) 1 Each Tablet, 1 TAB PO Q6H Y for PAIN, #20 TAB Prov:WILEY JAIN 09/21/16 Allergies Allergies: Coded Allergies: No Known Allergy (Unverified , 09/25/16) PMhx/Soc History of Surgery: Yes (appendix, c/s, gallbladder) Anesthesia Reaction: No Hx Neurological Disorder: No Hx Respiratory Disorders: No Hx Cardiac Disorders: Yes (DVT, HTN, Cardiac issue-on furosemide) Hx Psychiatric Problems: No Hx Miscellaneous Medical Probl: Yes (thyroid) Hx Alcohol Use: No Hx Substance Use: No Hx Tobacco Use: No Smoking Status: Never smoker Physical Exam Vitals Vital Signs Date Time Temp Pulse Resp B/P Pulse Ox O2 Delivery O2 Flow Rate FiO2 09/25/16 10:30 98.0 78 18 123/53 99 Physical Exam Constitutional:Well-developed. Well-nourished. HEENT:Normocephalic. Atraumatic.Pupils were equal round reactive to light. Moist mucous membranes.No tonsillar exudates. Respiratory: Not using accessory muscles of respiration.Lungs were clear to auscultation bilaterally. No rhonchi. No rales. No wheezing. Cardiovascular: Regular rate regular rhythm.No murmurs. No rubs were appreciated.S1, S2 normal. Distal pulses are palpable 2+ bilaterally. GI: Abdomen was soft. Nontender. Non Distended. No pulsatile abdominal masses or bruits. No rebound. No guarding. Bowel sounds were present and normal. Muscle skeletal: Full range of motion of both the upper and lower extremities bilaterally.Normal muscle tone.No assymetrical calf tenderness or swelling. Straight leg test positive on the right. No tenderness with palpation or percussion of the thoracic or lumbar spinous processes peer Skin: No petechia, no purpura. No lesions on the palms or the soles of the feet. No maculopapular rash. Previous ecchymosis over the dorsal aspect of the left foot had completely resolved from a previous evaluation September 13, 2016 NEURO: Patient was alert, awake, orientated x3.No facial droop. Gait observed and normal with no ataxia but this did exacerbate pain in the right buttocks region.Speech had regular rate and rhythm. No focal neurological deficits. Result Diagram: 09/25/16 1140 09/25/16 1140 Results 24 hrs Laboratory Tests Test 09/25/16 11:40 White Blood Count 10.010^3/ul Red Blood Count 3.5310^6/ul Hemoglobin 11.1g/dl Hematocrit 33.8% Mean Corpuscular Volume 95.8fl Mean Corpuscular Hemoglobin 31.4pg Mean Corpuscular Hemoglobin Concent 32.8g/dl Red Cell Distribution Width 15.4% Platelet Count 44253^3/UL Mean Platelet Volume 9.1fl Neutrophils % 74.7% Lymphocytes % 15.6% Monocytes % 7.6% Eosinophils % 0.7% Basophils % 0.5% Nucleated Red Blood Cells % 0.0/100WBC Neutrophils # 7.410^3/ul Lymphocytes # 1.610^3/ul Monocytes # 0.810^3/ul Eosinophils # 0.110^3/ul Basophils # 0.110^3/ul Nucleated Red Blood Cells # 0.010^3/ul Prothrombin Time 17.8Sec Prothrombin Time Ratio 1.4 INR International Normalized Ratio 1.46 Activated Partial Thromboplast Time 37.8Sec Sodium Level 140mmol/L Potassium Level 4.0mmol/L Chloride Level 101mmol/L Carbon Dioxide Level 25mmol/L Anion Gap 18 Blood Urea Nitrogen 33mg/dl Creatinine 1.04mg/dl Glucose Level 119mg/dl Calcium Level 10.2mg/dl Total Bilirubin 0.3mg/dl Direct Bilirubin 0.00mg/dl Indirect Bilirubin 0.3mg/dl Aspartate Amino Transf (AST/SGOT) 20IU/L Alanine Aminotransferase (ALT/SGPT) 33IU/L Alkaline Phosphatase 89IU/L Total Protein 7.7g/dl Albumin 4.2g/dl Globulin 3.50g/dl Albumin/Globulin Ratio 1.20 Current Medications Medications (Trade) Dose Ordered Sig/Yony Route PRN Reason Start Time Stop Time Status Last Admin Dose Admin Morphine Sulfate (morphine) 4 mg ONCE ONCE IM 09/25/16 11:30 09/25/16 11:31 DC 09/25/16 11:23 Ondansetron HCl (Zofran Odt) 4 mg ONCE STAT ODT 09/25/16 11:10 09/25/16 11:12 DC 09/25/16 11:22 Diazepam (Valium) 10 mg ONCE ONCE PO 09/25/16 11:30 09/25/16 11:31 DC 09/25/16 11:22 Procedures/MDM The patient presented to the emergency department with back pain. My differential diagnosis included but was not limited to spinal origins of the pain such as fracture, osteomyelitis, epidural abscess, neoplasm, spondylolishtesis, discogenic, cauda equina syndrome or musculoligamentous. Nonspinal causes such as AAA, upper UTI, renal colic, aortic dissection, abdominal neoplasm were also considered as an etiology into their pain. I obtained ancillary laboratory work and the patient had a mild elevation with prerenal azotemia compared to ancillary laboratory work taken September 13, 2016. Today the patient's BUN was 33 and creatinine was 1.04. September 21 her BUN was 21 and creatinine was 0.65. I do not feel is necessary to obtain any radiographic imaging or repeat vascular ultrasounds as they have just been done previously 2 days prior to arrival. The patient also had an MRI of her lumbar spine that was performed roughly 2 months ago on August 03, 2016. 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 My physical exam findings today were not concerning for cauda equina syndrome and I did feel that the patient was experiencing lumbar radiculopathy from exacerbation of her sciatica. She was given muscle relaxants of volume. She was given IM morphine and Toradol. Her pain had resolved and she was able to ambulate without any difficulty. The patient was discharged home in fair condition. They were instructed to return to the emergency department at any time if there was any worsening of their condition. The patient stated they would follow up with their PCP in the next 24-48 hours to initiate a suitable medication regimen under the care of their PCP as well as to allow their PCP to monitor any drug reactions. The patient was discharged home with prescriptions after they gave informed consent to the new medication. They were also fully informed by myself on the adverse effects and adverse drug interactions in order to provide adequate safeguards to prevent possible adverse reactions to medications. I did refill the patient' s prescription of tramadol for analgesic control as 2 days prior to arrival he had a written prescription of Union. Patient is on Flexeril Departure Diagnosis: Primary Impression: Sciatic leg pain Condition: WILEY Salazar Sep 25, 2016 11:13
[2016-09-25] MEDS ORDERED: morphine 10 MG INJ IM ONE (11:30)
[2016-09-25] MEDS ORDERED: DIAZEPAM 5 MG TAB PO ONE (11:30)
[2016-09-25 11:51] LABS: ADD SCAN DIFF NO
[2016-09-25 11:57] LABS: BASOPHIL # 0.1 10^3/ul (0.0-0.1); BASOPHILS % 0.5 % (0.0-2.0); EOSINOPHILS # 0.1 10^3/ul (0.0-0.5); EOSINOPHILS % 0.7 % (0.0-7.0); HEMATOCRIT 33.8 % (37.0-47.0); HEMOGLOBIN 11.1 g/dl (12.0-16.0); LYMPHOCYTES # 1.6 10^3/ul (0.8-2.9); LYMPHOCYTES % 15.6 % (15.0-51.0); MEAN CORPUSCULAR HEMOGLOBIN 31.4 pg (29.0-33.0); MEAN CORPUSCULAR HGB CONC 32.8 g/dl (32.0-37.0); MEAN CORPUSCULAR VOLUME 95.8 fl (82.0-101.0); MEAN PLATELET VOLUME 9.1 fl (7.4-10.4); MONOCYTE # 0.8 10^3/ul (0.3-0.9); MONOCYTES % 7.6 % (0.0-11.0); NEUTROPHIL # 7.4 10^3/ul (1.6-7.5); NEUTROPHILS % 74.7 % (39.0-77.0); PLATELET COUNT 378 10^3/UL (140-415); RED BLOOD COUNT 3.53 10^6/ul (4.20-5.40); RED CELL DISTRIBUTION WIDTH 15.4 % (11.5-14.5)
[2016-09-25 12:03] LABS: ALBUMIN 4.2 g/dl (3.3-4.9)
[2016-09-25 12:04] LABS: INR 1.46; PROTIME 17.8 Sec (12.2-14.2); PT RATIO 1.4
[2016-09-25 12:05] LABS: CREATININE 1.04 mg/dl (0.44-1.00); PARTIAL THROMBOPLASTIN TIME 37.8 Sec (25.0-35.0)
[2016-09-25 12:06] LABS: ALBUMIN/GLOBULIN RATIO 1.2; BILIRUBIN,INDIRECT 0.3 mg/dl (0-1.1); BILIRUBIN,TOTAL 0.3 mg/dl (0.2-1.3); CALCIUM 10.2 mg/dl (8.4-10.2); TOTAL PROTEIN 7.7 g/dl (6.1-8.1)
[2016-09-25] MEDS ORDERED: TRAM50TA2 PO (12:53)
[2016-09-25 13:00] VITALS: BP 125/50; PULSE 75; RESP 18; TEMP 98
== END 2016-09-25 13:08 | disposition home or self-care (01) ==
LOC: E/R 10:21
DX: M54.41 Lumbago with sciatica, right side (principal); I10 Essential (primary) hypertension; E11.9 Type 2 diabetes mellitus without complications; E03.9 Hypothyroidism, unspecified
CPT/HCPCS: 80053; 85025; 85610; 85730; 96374; 99284; J2270

== ENCOUNTER 2016-09-28 19:01 | Emergency (ER) | payer OTHER ==
[~2016-09-28] VITALS: Ht 134.6 cm; Wt 77.0 kg
[~2016-09-28 19:01] MED LIST changes: -HYDR-906 PO; +TRAM50TA2 PO
[2016-09-28 19:32] VITALS: Ht 134.6 cm; Wt 77.0 kg
[2016-09-28] MEDS ORDERED: KETOROLAC 15 MG INJ IM STA (19:58)
--- NOTE | 2016-09-28 20:09 | ERD ---
ER Documentation Chief Complaint Date/Time DATE: 09/28/16 TIME: 20:02 Chief Complaint BILATERAL LEG PAIN X 1 WEEK HPI 81-year-old female with a history of low back pain comes to emergency room with bilateral buttock pain for the past 2 weeks that radiates on both her legs. Patient states that she takes pain medication including tramadol she does not recall the other names. She ambulates with a walker normally. She denies any falls. No fevers or chills. She denies dysuria, urgency, frequency or hematuria. She recently had an MRI of her lumbar spine in July which was less than 2 months ago. Showed diffuse degenerative changes in L3-L4 and L5- S1. She denies any trauma, saddle anesthesia loss of bowel bladder function. She lives at home with a [id number] and their 2 children. ROS All systems reviewed and are negative except as per history of present illness. Medications Home Meds Active Scripts Hydrocodone/Acetaminophen ([place] 5-325 Tablet) 1 Each Tablet, 1 EACH PO Q6, #10 TAB Prov:ZOHRA LINDSEY PA-C 09/28/16 Tramadol HCl (Tramadol HCl) 50 Mg Tablet, 50 MG PO BID, #30 TAB Prov:WILEY JAIN 09/25/16 Cyclobenzaprine Hcl* (Cyclobenzaprine Hcl*) 10 Mg Tablet, 10 MG PO BID for PAIN , #15 TAB Prov:MADELIN MANCINI MD 09/13/16 Levothyroxine Sodium (Levothroid) 100 Mcg Tablet, 100 MCG PO BEFORE BREAKFAST, # 30 TAB Prov:MARGARITO BARRAGAN MD 08/04/16 Tramadol Hcl* (Ultram*) 50 Mg Tablet, 50 MG PO BID Y for PAIN LEVEL 6-10 for 1 Day, TAB Prov:MARGARITO BARRAGAN MD 08/04/16 Apixaban* (Eliquis*) 5 Mg Tablet, 10 MG PO BID for 5 Days, TAB Prov:KIZZY BELTRÁN 04/21/16 Docusate Sodium* (Colace*) 100 Mg Capsule, 100 MG PO BID for 7 Days, #30 CAP Prov:TOBI SMALLWOOD PA-C 03/11/16 Reported Medications Gabapentin* (Gabapentin*) 100 Mg Capsule, 100 MG PO TID, #90 CAP 09/13/16 Meloxicam* (Meloxicam*) 7.5 Mg Tablet, 7.5 MG PO BID, #30 TAB 09/13/16 Baclofen* (Baclofen*) 10 Mg Tablet, 10 MG PO Q8 Y for MUSCLE SPASMS, TAB 04/17/16 Omeprazole* (Omeprazole*) 20 Mg Capsule.dr, 20 MG PO DAILY, #30 CAP 04/17/16 Carbamazepine* (Carbamazepine* XR) 100 Mg Cpmp.12hr, 100 MG PO Q12, #60 CAP 04/17/16 Alendronate Sodium* (Fosamax*) 70 Mg Tablet, 70 MG PO Q7D, #4 TAB 04/17/16 Olmesartan Medoxomil (Benicar) 40 Mg Tablet, 40 MG PO DAILY, #30 TAB 04/17/16 Furosemide* (Furosemide*) 40 Mg/5 Ml Solution, 40 MG PO DAILY, #150 ML 04/17/16 Nitroglycerin* (Nitroglycerin* SL) 0.4 Mg Tab.subl, 0.4 MG SL Q5MIN Y for CHEST PAIN, BOTTLE 04/17/16 Discontinued Scripts Hydrocodone/Acetaminophen ([place] 5-325 Tablet) 1 Each Tablet, 1 TAB PO Q6H Y for PAIN, #20 TAB Prov:WILEY JAIN 09/21/16 Allergies Allergies: Coded Allergies: No Known Allergy (Unverified , 09/25/16) PMhx/Soc History of Surgery: Yes (appendix, c/s, gallbladder) Anesthesia Reaction: No Hx Neurological Disorder: No Hx Respiratory Disorders: No Hx Cardiac Disorders: Yes (DVT, HTN, Cardiac issue-on furosemide) Hx Psychiatric Problems: No Hx Miscellaneous Medical Probl: Yes (thyroid) Hx Alcohol Use: No Hx Substance Use: No Hx Tobacco Use: No Smoking Status: Never smoker Physical Exam Vitals Vital Signs Date Time Temp Pulse Resp B/P Pulse Ox O2 Delivery O2 Flow Rate FiO2 09/28/16 19:32 98.8 94 18 106/50 96 Physical Exam General: Elderly pleasant female, in no distress HEENT: Head is normocephalic, atraumatic. No scleral icterus. Neck: Supple. Nontender. Lungs: Clear to auscultation. Normal air movement. Heart: Regular rate and rhythm. S1 and S2 are normal. No murmurs, gallops, or rubs. Abdomen: Soft, nontender, nondistended. Bowel sounds are normoactive. Back: diffuse low back tenderness at L3-5, no trauma, no rash. Strength to LE 5/ 5 bilaterally Extremities: No clubbing or cyanosis. Normal pulses. Moving extremities x 4. No weakness. Neurologic: Alert and oriented 3. No focal deficits. Skin: Normal turgor. No rash or lesions. Results 24 hrs Current Medications Medications (Trade) Dose Ordered Sig/Yony Route PRN Reason Start Time Stop Time Status Last Admin Dose Admin Ketorolac Tromethamine (Toradol) 15 mg ONCE STAT IM 09/28/16 19:58 09/28/16 19:59 DC 09/28/16 20:36 PROCEDURE: XR Lumbar Spine. CLINICAL INDICATION: Pain TECHNIQUE: Three views of the lumbar spine are available for review COMPARISON: 06/08/2016 FINDINGS: Facet hypertrophy in lower lumbar spine again seen. Degenerative disk changes throughout the lumbar spine greatest at L3-4 through L5-S1 where they are moderate to marked again seen. Approximate 5 mm anterior displacement L4 vertebral body on L5 again seen secondary to degenerative changes. No fracture is seen. Calcification in abdominal aorta. Degenerative changes at sacroiliac joints. Likely small phlebolith in left lower pelvis. Degenerative changes in visualized lower thoracic spine. IMPRESSION: Degenerative changes again seen. Please see above. RPTAT: HJES .Wil Alcaraz MD, MD Date Time Electronically viewed and signed by .Wil Alcaraz MD, MD on 09/28/2016 21:04 PROCEDURE: Pelvis x-ray CLINICAL INDICATION: Pelvic pain. TECHNIQUE: Single AP view of the pelvis performed. COMPARISON: None FINDINGS: Normal mineralization, architecture and alignment. No fracture or osseous lesion identified. Enthesopathic changes at the anterior iliacs, bilateral greater trochanters and degenerative changes in the lower lumbar spine, greater in the region of the L4- 5 level. Degree of stool impaction may be present in the rectum. IMPRESSION: Degenerative changes, without acute fracture. RPTAT: [facility] Physician Rony Date Time Electronically viewed and signed by Paola Saini Physician on 09/28/2016 21:02 Procedures/MDM ED COURSE: She was given Toradol 15 mg IM. EMR was reviewed, MRI of lumbar spine from July 2016 was reviewed. She also had a bilateral lower extremity duplex study that was negative for DVT and within the last week. Patient's history, physical examination and EMR was reviewed with my attending physician, Dr. Fam. MDM: A 81-year-old female comes in with acute exacerbation of low back pain, she has chronic low back pain from degenerative changes. Patient was given Toradol 50 mg IM in the emergency department, she also had x-rays of her lumbar spine and pelvis that did not show any acute findings, including a fracture. She does not show any signs of compression syndrome, cauda equina, epidural abscess, epidural hematoma, dissection, pyelonephritis. I doubt DVT given she has recently had a duplex study of her bilateral lower extremities. MRI was considered however recently done, that showed chronic changes that explain the patient's pain. She will be given a short course of [place] to follow-up with her primary care physician. The case was reviewed and discussed with Dr. Fam who agrees with the plan of care including labs, treatment, and advanced imaging as appropriate. Departure Diagnosis: Primary Impression: Back pain Condition: ZOHRA Rojas PA-C Sep 28, 2016 20:09
--- NOTE | 2016-09-28 21:02 | RADRPT ---
PROCEDURE: Pelvis x-ray CLINICAL INDICATION: Pelvic pain. TECHNIQUE: Single AP view of the pelvis performed. COMPARISON: None FINDINGS: Normal mineralization, architecture and alignment. No fracture or osseous lesion identified. Enthesopathic changes at the anterior iliacs, bilateral greater trochanters and degenerative changes in the lower lumbar spine, greater in the region of the L4-5 level. Degree of stool impaction may be present in the rectum. IMPRESSION: Degenerative changes, without acute fracture. RPTAT: [facility] Physician Rony Date Time Electronically viewed and signed by Physician Rony on 09/28/2016 21:02 RS/
--- NOTE | 2016-09-28 21:05 | RADRPT ---
PROCEDURE: XR Lumbar Spine. CLINICAL INDICATION: Pain TECHNIQUE: Three views of the lumbar spine are available for review COMPARISON: 06/08/2016 FINDINGS: Facet hypertrophy in lower lumbar spine again seen. Degenerative disk changes throughout the lumbar spine greatest at L3-4 through L5-S1 where they are moderate to marked again seen. Approximate 5 m m anterior displacement L4 vertebral body on L5 again seen secondary to degenerative changes. No fra cture is seen. Calcification in abdominal aorta. Degenerative changes at sacroiliac joints. Likely small phlebolith in left lower pelvis. Degenerative changes in visualized lower thoracic spine. IMPRESSION: Degenerative changes again seen. Please see above. RPTAT: HJES .Wil Alcaraz MD, MD Date Time Electronically viewed and signed by .Wil Alcaraz MD, on 09/28/2016 21:04 .S/
[2016-09-28] MEDS ORDERED: HYDR-906 PO (21:18)
== END 2016-09-28 21:51 | disposition home or self-care (01) ==
LOC: FTE 19:01
DX: M54.5 Low back pain (principal); I10 Essential (primary) hypertension; E03.9 Hypothyroidism, unspecified
CPT/HCPCS: 72100; 72170; 96372; 99284; J1885

== ENCOUNTER 2016-10-03 21:37 | Emergency (ER) | payer OTHER ==
[~2016-10-03] VITALS: Ht 149.9 cm; Wt 81.8 kg
[~2016-10-03 21:37] MED LIST changes: +HYDR-906 PO
[2016-10-03 21:41] VITALS: Ht 149.9 cm; Wt 81.8 kg
[2016-10-03] MEDS ORDERED: DOCU-144 PO (23:17)
[2016-10-03] MEDS ORDERED: IBUP-1542 PO (23:17)
[2016-10-03] MEDS ORDERED: HYDR-906 PO (23:17)
--- NOTE | 2016-10-03 23:24 | ERD ---
ER Documentation Chief Complaint Date/Time DATE: 10/03/16 TIME: 23:22 Chief Complaint bilateral hip pain x "months" worst today HPI Patient is an 81-year-old female who presents with back pain that radiates down her lower extremities. This is chronic pain that she has been seen here multiple times for this. Her last visit was on the f September 28 and she had x- rays which were unremarkable. She states she takes ibuprofen which helps temporarily with the pain. She is ambulatory. Denies any trauma. Denies any bowel or bladder incontinence or saddle anesthesia. Denies any numbness or tingling. Denies any urinary symptoms. ROS All systems reviewed and are negative except as per history of present illness. Medications Home Meds Active Scripts Ibuprofen* (Motrin*) 600 Mg Tab, 600 MG PO Q6H Y for PAIN AND OR ELEVATED TEMP, #30 TAB Prov:MOUNA PIERCE PA-C 10/03/16 Hydrocodone/Acetaminophen ([place] 5-325 Tablet) 1 Each Tablet, 1 TAB PO Q6H Y for PAIN, #10 TAB Prov:MOUNA PIERCE PA-C 10/03/16 Docusate Sodium* (Colace*) 100 Mg Capsule, 100 MG PO BID, #20 CAP Prov:MOUNA PIERCE PA-C 10/03/16 Hydrocodone/Acetaminophen ([place] 5-325 Tablet) 1 Each Tablet, 1 EACH PO Q6, #10 TAB Prov:ZOHRA LINDSEY PA-C 09/28/16 Tramadol HCl (Tramadol HCl) 50 Mg Tablet, 50 MG PO BID, #30 TAB Prov:WILEY JAIN 09/25/16 Cyclobenzaprine Hcl* (Cyclobenzaprine Hcl*) 10 Mg Tablet, 10 MG PO BID for PAIN , #15 TAB Prov:MADELIN MANCINI MD 09/13/16 Levothyroxine Sodium (Levothroid) 100 Mcg Tablet, 100 MCG PO BEFORE BREAKFAST, # 30 TAB Prov:MARGARITO BARRAGAN MD 08/04/16 Tramadol Hcl* (Ultram*) 50 Mg Tablet, 50 MG PO BID Y for PAIN LEVEL 6-10 for 1 Day, TAB Prov:MARGARITO BARRAGAN MD 08/04/16 Apixaban* (Eliquis*) 5 Mg Tablet, 10 MG PO BID for 5 Days, TAB Prov:KIZZY BELTRÁN 04/21/16 Docusate Sodium* (Colace*) 100 Mg Capsule, 100 MG PO BID for 7 Days, #30 CAP Prov:TOBI SMALLWOOD PA-C 03/11/16 Reported Medications Gabapentin* (Gabapentin*) 100 Mg Capsule, 100 MG PO TID, #90 CAP 09/13/16 Meloxicam* (Meloxicam*) 7.5 Mg Tablet, 7.5 MG PO BID, #30 TAB 09/13/16 Baclofen* (Baclofen*) 10 Mg Tablet, 10 MG PO Q8 Y for MUSCLE SPASMS, TAB 04/17/16 Omeprazole* (Omeprazole*) 20 Mg Capsule.dr, 20 MG PO DAILY, #30 CAP 04/17/16 Carbamazepine* (Carbamazepine* XR) 100 Mg Cpmp.12hr, 100 MG PO Q12, #60 CAP 04/17/16 Alendronate Sodium* (Fosamax*) 70 Mg Tablet, 70 MG PO Q7D, #4 TAB 04/17/16 Olmesartan Medoxomil (Benicar) 40 Mg Tablet, 40 MG PO DAILY, #30 TAB 04/17/16 Furosemide* (Furosemide*) 40 Mg/5 Ml Solution, 40 MG PO DAILY, #150 ML 04/17/16 Nitroglycerin* (Nitroglycerin* SL) 0.4 Mg Tab.subl, 0.4 MG SL Q5MIN Y for CHEST PAIN, BOTTLE 04/17/16 Allergies Allergies: Coded Allergies: No Known Allergy (Unverified , 09/25/16) PMhx/Soc History of Surgery: Yes (appendix, c/s, gallbladder) Anesthesia Reaction: No Hx Neurological Disorder: No Hx Respiratory Disorders: No Hx Cardiac Disorders: Yes (DVT, HTN, Cardiac issue-on furosemide) Hx Psychiatric Problems: No Hx Miscellaneous Medical Probl: Yes (thyroid) Hx Alcohol Use: No Hx Substance Use: No Hx Tobacco Use: No Smoking Status: Never smoker FmHx Family History: No diabetes Physical Exam Vitals Vital Signs Date Time Temp Pulse Resp B/P Pulse Ox O2 Delivery O2 Flow Rate FiO2 10/03/16 21:41 98.4 81 17 118/57 99 Physical Exam General: well developed, well nourished, alert, nontoxic, no distress Head: normocephalic, atraumatic Neck: Supple, nontender, no lymphadenopathy, no midline tenderness Respiratory: Clear to auscaultation bilaterally, speaks in full sentences, no use of accesory muscles or labored breathing, no rales, ronchi, or wheezing Cardiovascular: RRR, No murmurs GI: soft, non tender, non distended, negative murphys sign, negative mcburneys point tenderness, no cva tenderness bilaterally, no rebound or guarding Back: no midline tenderness, no step offs or bony abnormalities, sensation to light touch in tact Extremities: moving all extremities normally, normal gait, no edema Procedures/MDM Patient presents with chronic back pain. She is neurovascularly intact. Her vital signs are all normal. No evidence of infection. No urinary symptoms. I doubt cauda equina syndrome, cord compression, epidural abscess, or any other emergent cause of her symptoms. She was just seen here a few days ago and had x -rays that were only positive for degenerative changes. I reviewed the case with Dr. Teran and we agree she is suitable for outpatient management and she was discharged with copies of her x-ray reports, ibuprofen, [place], and Colace. Recommended this patient follow up with her primary care doctor within 48 hours or return to the emergency room for any worsening of symptoms. However this time I do believe there is suitable for outpatient management. I answered all their questions and they agreed with the plan and were discharged home. Departure Diagnosis: Primary Impression: Chronic pain Condition: Stable Patient Instructions: Chronic Pain Additional Instructions: Llame al doctor GLENDY y johnnie steph RAQUEL PARA DENTRO DE 1-2 FLORES.Dgale a la secretaria que nosotros le instruimos hacer esta raquel.Avise o llame si simms condicin se empeora antes de la raquel. Regresa aqui si peor o no mejor. MOUNA PIERCE PA-C Oct 03, 2016 23:24
== END 2016-10-03 23:49 | disposition home or self-care (01) ==
LOC: FTE 21:37
DX: G89.29 Other chronic pain (principal); I10 Essential (primary) hypertension; E03.9 Hypothyroidism, unspecified; Z79.01 Long term (current) use of anticoagulants
CPT/HCPCS: 99283

== ENCOUNTER 2017-02-06 08:36 | Emergency (ER) | END 2017-02-06 13:17 | disposition home or self-care (01) | DX: R10.32 Left lower quadrant pain (principal); K59.00 Constipation, unspecified; K21.9 Gastro-esophageal reflux disease without esophagitis; I10 Essential (primary) hypertension | CPT/HCPCS: 36415; 74177; 80053; 83690; 85025; 99285; Q9967 ==

== ENCOUNTER 2017-02-15 21:34 | Emergency (ER) | payer MEDICARE, MEDICAID ==
[~2017-02-15] VITALS: Ht 160 cm; Wt 75.5 kg
[~2017-02-15 21:34] MED LIST changes: +CIPR500T4 PO; +IBUP-1542 PO; +METR500T PO; +OMEP40CA6 PO; +POLY17PO6 PO
[2017-02-15 21:37] VITALS: Ht 160 cm; Wt 75.5 kg
[2017-02-15] MEDS ORDERED: FAMOTIDINE 20 MG INJ IV STA (22:11)
[2017-02-15] MEDS ORDERED: LIDOCAINE/MYLANTA 40 ML BTL PO STA (22:11)
[2017-02-15] MEDS ORDERED: ONDANSETRON 4 MG INJ IV STA (22:11)
[2017-02-15] MEDS ORDERED: morphine 4 MG/ML VIAL IV STA (22:11)
[2017-02-15] MEDS ORDERED: SOD CHLORIDE 0.9% 500 ML IV STA (22:11)
[2017-02-15 22:57] LABS: BASOPHIL # 0.1 10^3/ul (0.0-0.1); BASOPHILS % 0.6 % (0.0-2.0); EOSINOPHILS # 0.1 10^3/ul (0.0-0.5); EOSINOPHILS % 0.5 % (0.0-7.0); HEMATOCRIT 37.3 % (37.0-47.0); HEMOGLOBIN 12.1 g/dl (12.0-16.0); LYMPHOCYTES # 2.3 10^3/ul (0.8-2.9); LYMPHOCYTES % 23.8 % (15.0-51.0); MEAN CORPUSCULAR HEMOGLOBIN 31.5 pg (29.0-33.0); MEAN CORPUSCULAR HGB CONC 32.4 g/dl (32.0-37.0); MEAN CORPUSCULAR VOLUME 97.1 fl (82.0-101.0); MEAN PLATELET VOLUME 9.1 fl (7.4-10.4); MONOCYTE # 0.8 10^3/ul (0.3-0.9); MONOCYTES % 7.9 % (0.0-11.0); NEUTROPHILS % 66.1 % (39.0-77.0); PLATELET COUNT 431 10^3/UL (140-415); RED BLOOD COUNT 3.84 10^6/ul (4.20-5.40); RED CELL DISTRIBUTION WIDTH 16.4 % (11.5-14.5); WHITE BLOOD COUNT 9.4 10^3/ul (4.8-10.8)
[2017-02-15 23:19] LABS: ALBUMIN 3.8 g/dl (3.3-4.9); ALBUMIN/GLOBULIN RATIO 1.15; BILIRUBIN,INDIRECT 0.4 mg/dl (0-1.1); BILIRUBIN,TOTAL 0.4 mg/dl (0.2-1.3); CALCIUM 9.7 mg/dl (8.4-10.2); CREATININE 0.85 mg/dl (0.44-1.00); TOTAL PROTEIN 7.1 g/dl (6.1-8.1)
[2017-02-15] MEDS ORDERED: RANI150T9 PO (23:56)
[2017-02-15] MEDS ORDERED: SUCR1TAB56 PO (23:56)
--- NOTE | 2017-02-15 23:59 | ERD ---
ER Documentation Chief Complaint Date/Time DATE: 02/15/17 TIME: 23:57 Chief Complaint upper abd pain x 1 month HPI 82-year-old female chronic epigastric abdominal pain for the past few years comes in saying that it is a little bit worse over the past month. Mild nausea but no vomiting. Pain is epigastric in location burning in sensation in. No fevers no chills. No sick contacts. No other current complaints. Pain is mild to moderate intensity ROS All systems reviewed and are negative except as per history of present illness. Medications Home Meds Active Scripts Ranitidine Hcl* (Zantac*) 150 Mg Tablet, 150 MG PO BID Y for EPIGASTRIC PAIN, # 30 TAB Prov:LYNN QUEEN 02/15/17 Sucralfate* (Carafate*) 1 Gm Tab, 1 GM PO QID, #30 TAB Prov:LYNN QUEEN 02/15/17 Levothyroxine Sodium (Levothroid) 100 Mcg Tablet, 100 MCG PO BEFORE BREAKFAST, # 30 TAB Prov:MARGARITO BARRAGAN MD 08/04/16 Reported Medications Gabapentin* (Gabapentin*) 100 Mg Capsule, 100 MG PO TID, #90 CAP 09/13/16 Meloxicam* (Meloxicam*) 7.5 Mg Tablet, 7.5 MG PO BID, #30 TAB 09/13/16 Furosemide* (Furosemide*) 40 Mg/5 Ml Solution, 40 MG PO DAILY, #150 ML 04/17/16 Discontinued Reported Medications Baclofen* (Baclofen*) 10 Mg Tablet, 10 MG PO Q8 Y for MUSCLE SPASMS, TAB 04/17/16 Omeprazole* (Omeprazole*) 20 Mg Capsule.dr, 20 MG PO DAILY, #30 CAP 04/17/16 Carbamazepine* (Carbamazepine* XR) 100 Mg Cpmp.12hr, 100 MG PO Q12, #60 CAP 04/17/16 Alendronate Sodium* (Fosamax*) 70 Mg Tablet, 70 MG PO Q7D, #4 TAB 04/17/16 Olmesartan Medoxomil (Benicar) 40 Mg Tablet, 40 MG PO DAILY, #30 TAB 04/17/16 Nitroglycerin* (Nitroglycerin* SL) 0.4 Mg Tab.subl, 0.4 MG SL Q5MIN Y for CHEST PAIN, BOTTLE 04/17/16 Discontinued Scripts Metronidazole* (Flagyl*) 500 Mg Tablet, 500 MG PO TID for 7 Days, TAB Prov:PARTH GRIGGS. DO 02/06/17 Ciprofloxacin Hcl* (Ciprofloxacin Hcl*) 500 Mg Tablet, 500 MG PO BID for 7 Days , TAB Prov:PARTH GRIGGS. DO 02/06/17 Omeprazole* (Omeprazole*) 40 Mg Capsule.dr, 40 MG PO DAILY, #21 CAP Prov:PARTH GRIGGS. DO 02/06/17 Polyethylene Glycol* (Miralax*) 17 Gm Powd.pack, 17 GM PO DAILY, #7 Prov:PARTH GRIGGS. DO 02/06/17 Ibuprofen* (Motrin*) 600 Mg Tab, 600 MG PO Q6H Y for PAIN AND OR ELEVATED TEMP, #30 TAB Prov:MOUNA PIERCE PA-C 10/03/16 Hydrocodone/Acetaminophen ([place] 5-325 Tablet) 1 Each Tablet, 1 TAB PO Q6H Y for PAIN, #10 TAB Prov:MOUNA PIERCE PA-C 10/03/16 Docusate Sodium* (Colace*) 100 Mg Capsule, 100 MG PO BID, #20 CAP Prov:MOUNA PIERCE PA-C 10/03/16 Hydrocodone/Acetaminophen ([place] 5-325 Tablet) 1 Each Tablet, 1 EACH PO Q6, #10 TAB Prov:ZOHRA LINDSEY PA-C 09/28/16 Tramadol HCl (Tramadol HCl) 50 Mg Tablet, 50 MG PO BID, #30 TAB Prov:WILEY JAIN 09/25/16 Cyclobenzaprine Hcl* (Cyclobenzaprine Hcl*) 10 Mg Tablet, 10 MG PO BID for PAIN , #15 TAB Prov:MADELIN MANCINI MD 09/13/16 Tramadol Hcl* (Ultram*) 50 Mg Tablet, 50 MG PO BID Y for PAIN LEVEL 6-10 for 1 Day, TAB Prov:MARGARITO BARRAGAN MD 08/04/16 Apixaban* (Eliquis*) 5 Mg Tablet, 10 MG PO BID for 5 Days, TAB Prov:KIZZY BELTRÁN 04/21/16 Docusate Sodium* (Colace*) 100 Mg Capsule, 100 MG PO BID for 7 Days, #30 CAP Prov:TOBI SMALLWOOD PA-C 03/11/16 Allergies Allergies: Coded Allergies: No Known Allergy (Unverified , 02/15/17) PMhx/Soc History of Surgery: Yes (appendix, c/s, gallbladder) Anesthesia Reaction: No Hx Neurological Disorder: No Hx Respiratory Disorders: No Hx Cardiac Disorders: Yes (DVT, HTN, Cardiac issue-on furosemide) Hx Psychiatric Problems: No Hx Miscellaneous Medical Probl: Yes (thyroid) Hx Alcohol Use: No Hx Substance Use: No Hx Tobacco Use: No Smoking Status: Never smoker Physical Exam Vitals Vital Signs Date Time Temp Pulse Resp B/P Pulse Ox O2 Delivery O2 Flow Rate FiO2 02/15/17 21:37 97.6 89 20 138/107 97 Physical Exam Const: [] Head: Atraumatic Eyes: Normal Conjunctiva ENT: Normal External Ears, Nose and Mouth. Neck: Full range of motion..~ No meningismus. Resp: Clear to auscultation bilaterally Cardio: Regular rate and rhythm, no murmurs Abd: Soft, non tender, non distended. Normal bowel sounds Skin: No petechiae or rashes Back: No midline or flank tenderness Ext: No cyanosis, or edema Neur: Awake and alert Psych: Normal Mood and Affect Result Diagram: 02/15/17222502/15/172225 Results 24 hrs Laboratory Tests Test 02/15/17 22:26 White Blood Count 9.410^3/ul Red Blood Count 3.8410^6/ul Hemoglobin 12.1g/dl Hematocrit 37.3% Mean Corpuscular Volume 97.1fl Mean Corpuscular Hemoglobin 31.5pg Mean Corpuscular Hemoglobin Concent 32.4g/dl Red Cell Distribution Width 16.4% Platelet Count 61287^3/UL Mean Platelet Volume 9.1fl Neutrophils % 66.1% Lymphocytes % 23.8% Monocytes % 7.9% Eosinophils % 0.5% Basophils % 0.6% Nucleated Red Blood Cells % 0.0/100WBC Neutrophils # (Manual) 610^3/ul Lymphocytes # 2.310^3/ul Monocytes # 0.810^3/ul Eosinophils # 0.110^3/ul Basophils # 0.110^3/ul Nucleated Red Blood Cells # 0.010^3/ul Sodium Level 142mmol/L Potassium Level 4.0mmol/L Chloride Level 99mmol/L Carbon Dioxide Level 29mmol/L Anion Gap 18 Blood Urea Nitrogen 10mg/dl Creatinine 0.85mg/dl Glucose Level 138mg/dl Calcium Level 9.7mg/dl Total Bilirubin 0.4mg/dl Direct Bilirubin 0.00mg/dl Indirect Bilirubin 0.4mg/dl Aspartate Amino Transf (AST/SGOT) 25IU/L Alanine Aminotransferase (ALT/SGPT) 34IU/L Alkaline Phosphatase 89IU/L Total Protein 7.1g/dl Albumin 3.8g/dl Globulin 3.30g/dl Albumin/Globulin Ratio 1.15 Lipase 28U/L Current Medications Medications (Trade) Dose Ordered Sig/Yony Route PRN Reason Start Time Stop Time Status Last Admin Dose Admin Sodium Chloride (NS) 500 ml @ 500 mls/hr Q1H STAT IV 02/15/17 22:11 02/15/17 23:10 DC 02/15/17 22:28 Morphine Sulfate (morphine) 4 mg ONCE STAT IV 02/15/17 22:11 02/15/17 22:12 DC 02/15/17 22:28 Ondansetron HCl (Zofran Inj) 4 mg ONCE STAT IV 02/15/17 22:11 02/15/17 22:12 DC 02/15/17 22:28 Famotidine (Pepcid Iv) 20 mg ONCE STAT IV 02/15/17 22:11 02/15/17 22:12 DC 02/15/17 22:28 Miscellaneous Medication (Gi Cocktail (2)) 40 ml ONCE STAT PO 02/15/17 22:11 02/15/17 22:12 DC 02/15/17 22:28 Procedures/MDM EKG: Rate/Rhythm: [Normal Sinus Rhythm] QRS, ST, T-waves: [No changes consistent w/ acute ischemia] Impression: [No evidence of ischemia or arrhythmia] Medical decision-making: Patient is in the reactivation of GERD. At this point clinically stable for outpatient management. Told return here in 8 hours for serial abdominal exams. Discharge home with Zantac and Carafate. Departure Diagnosis: Primary Impression: Abdominal pain Abdominal location: epigastric Qualified Code: R10.13 - Epigastric pain Condition: Stable Patient Instructions: Gastritis (Adult) LYNN QUEEN Feb 15, 2017 23:59
[2017-02-16 00:13] VITALS: BP 118/57; PULSE 70; RESP 18; TEMP 98
== END 2017-02-16 00:14 | disposition home or self-care (01) ==
LOC: E/R 21:34
DX: R10.13 Epigastric pain (principal); R11.0 Nausea; I10 Essential (primary) hypertension
CPT/HCPCS: 36415; 80053; 83690; 85025; 96374; 96375; 99284; J2270; J2405; J7040

== ENCOUNTER 2017-10-15 17:21 | Emergency (ER) | END 2017-10-15 19:35 | disposition home or self-care (01) ==

== ENCOUNTER 2017-10-17 14:08 | Emergency (ER) | END 2017-10-17 19:10 | disposition home or self-care (01) ==